=== PATIENT | female | born 1935 | race Caucasian/White ===

== ENCOUNTER → 2016-08-14 16:01 | Outpatient (CLI) | payer MEDICARE ==
[2015-10-25 13:37] VITALS: BMI 25.3
[~2016-08-14 16:01] MED LIST: ACETAMINOPHEN500 M1; FISH OIL 1,0001 CA1 PO; FOLATE0.4 MG; HYDROCODONE-APA1 TAB PO; MOBIC7.5 MG; MULTI-DAY VITAM1 TAB PO; NORCO 10/325 TA1 TA1 PO; NORCO 7.5/325 T1 TA1 PO; NORVASC5 MG PO; PACERONE100 MG PO; PRAVACHOL80 MG PO; PRINIVIL20 MG PO; ROBAXIN-750750 MG PO; VITAMIN D31000 UNIT PO; [UNRECOGNIZED DRUG - OTHER]
== END | disposition home or self-care (01) ==
LOC: D.MRI 08-13 16:00
DX: R27.0 Ataxia, unspecified (principal)

== ENCOUNTER 2017-12-13 09:56 | Outpatient (CLI) | payer MEDICARE ==
[~2017-12-13] VITALS: Ht 149.9 cm; Wt 49.1 kg
--- NOTE | ~2017-12-13 | HEMODYNAMI ---
PATIENT:NOE ESPINOSA MEDICAL RECORD: [id number] : 31 LOCATION:D.CAT ADMISSION DATE: 12/13/17 Generatedon:12/13/201712:50 Patient name: NOE ESPINOSA Patient #: [id number] SSN : : 1935 Date of study: 12/13/2017 Page: Of Hemodynamic Procedure Report Patient Data Patient Demographics Procedure consent was obtained First Name: NOE Gender: Female Last Name: JESÚS : 1935 Middle Initial: M Age: 82 year(s) Patient #: [id number] Race: Unknown Additional ID: [id number] Contact details [address]: [address] [place] [address] State: [place] City: [place] Zip code: [address] Past Medical History Allergies Allergen Reaction Date Comments Reported Other 10/25/2015 niacin,aspirin,gabapentin allergy Admission Admission Data Admission Date: 12/13/2017 Admission Time: 9:56 Procedure Procedure Types Cath Procedure Diagnostic Procedure Cardioversion External Procedure Description Procedure Date Procedure Date: 12/13/2017 Procedure Start Time: 12:28 Procedure End Time: 12:41 Procedure Staff Name Function Darius Wisdom RT Monitor Dylan Roca RN Nurse Nabila Rogers RN Nurse Alyssa Bill CRNA Additional personnel Linwood Chapa MD Performing Physician Lizbeth Burnette RT Monitor Kendra Roth RT Scrub Procedure Data Cath Procedure Estimated blood loss: 10 ml Procedure Complications No complications Procedure Medications Medication Administration Route Dosage Oxygen etCO2 Nasal cannula 2 l/min Refer to Anesthesia Notes for Sedation Medications Hemodynamics Rest Heart Rate: 76 (bpm) Snapshots Pre Cath Intra NCS Post Cath Vital Signs Time Heart Resp SPO2 etCO2 NIBP (mmHg) Rhythm Pain Sedation Rate (ipm) (%) (mmHg) Status Level (bpm) 12:18:13 81 20 97 28 138/91(118) NSR 0 (11) 10(A) , No pain 12:22:16 73 18 100 27 139/88(123) NSR 0 (11) 6(A) , No pain 12:26:22 73 23 100 27.7 147/82(120) NSR 0 (11) 6(A) , No pain 12:30:42 53 23 96 22 108/50(88) NSR 0 (11) 6(A) , No pain 12:34:46 57 19 100 22 106/55(82) NSR 0 (11) 10(A) , No pain 12:38:48 56 21 98 23 107/59(75) NSR 0 (11) 10(A) , No pain Medications Time Medication Route Dose Verified Delivered Reason Notes Effective ness by by 12:17:12 Oxygen etCO2 2 Linwood Richardson used for Nasal l/min Eduard Roca contract administrative assistant cannula 12:17:17 Refer to Linwood Richardson Anesthesia Eduard Roca RN Notes for Sedation Medications Procedure Log Time Note 12:02:01 Darius Wisdom RT(R) sent for patient. Start room use. 12:02:02 Time tracking: Regular hours (M-F 7:00 - 5:00) 12:02:07 Plan of Care:Hemodynamics will remain stable., Cardiac rhythm will remain stable., Comfort level will be maintained., Respiratory function will remain adequate., Patient/ family verbilizes understanding of procedure., Procedure tolerated without complication., Recovers from procedure without complications.. 12:11:22 Patient received from Pre/Post Procedure Room to CCL 2 Alert and oriented. Tansferred to table in Supine position. 12:11:23 Correct patient and procedure confirmed by team. 12:11:23 Warm blankets applied, and arlet hugger turned on for patient comfort. 12:11:25 Signed procedure consent form obtained from patient. 12:11:26 ECG and BP/O2 sat monitors applied to patient. 12:15:59 Vital chart was started 12:16:03 Baseline sample Acquired. 12:16:13 Rhythm: atrial fibrillation 12:16:14 Full Disclosure recording started 12:16:18 H&P Date Dictated: 12/13/2017 Within 30 days and on chart., H&P Addendum completed by physician on day of procedure. (MUST COMPLETE FOR ALL OUTPATIENTS). 12:16:19 Pre-procedure instructions explained to patient. 12:16:20 Pre-op teaching completed and patient verbalized understanding. 12:16:21 Family in waiting room. 12:16:23 Patient NPO since Midnight. 12:16:24 Is the patient allergic to Iodine/contrast media? No. 12:16:25 Was the patient premedicated? No 12:16:27 Is patient on blood thinner?Yes 12:16:32 ACC The patient was administered the following blood thiners within the last 24 hours: Coumadin 12:16:36 Patient diabetic? No. 12:16:38 Previous problem with sedation/anesthesia? No ? 12:16:40 Snore? No 12:16:41 Sleep apnea? No 12:16:42 Opens mouth fully? Yes 12:16:42 Deviated septum? No 12:16:43 Sticks out tongue? Yes 12:16:45 Airway obstruction? No ? 12:16:53 Dentures? Yes in tight 12:16:58 Patient pain scale 0/10 ?. 12:17:12 Oxygen 2 l/min etCO2 Nasal cannula was administered by Dylan Roca RN; used for procedure; 12:17:15 IV patent on arrival in left forearm with 0.9% NaCl at [facility]. 12:17:17 Refer to Anesthesia Notes for Sedation Medications was administered by Dylan Roca RN; ; 12:17:18 Lab results completed and on chart. 12:17:30 Alarms reviewed by RAmanda N. 12:17:31 Sharps counted by scrub and verified by R.N. 12:17:37 Quick combo pads placed on patients chest and back. 12:18:21 Alyssa Bill CRNA present and monitoring patient for TIVA. 12:19:24 --------ALL STOP TIME OUT------ 12:19:24 Physician arrived 12:19:25 Final Timeout: patient, procedure, and site verified with staff and physician. All members of the team are in agreement. 12:19:30 Physical assessment completed. ASA score P 2 - A patient with mild systemic disease as per Linwood Chapa MD. 12:19:34 Sedation plan: TIVA Medication:Propofol 12:28:26 Procedure started. 12:28:52 Defibrillator synced and charged to 200 Joules. 12:29:01 Shock delivered. 12:29:52 Patient cardioverted to sinus rhythm . 12:30:31 Procedure ended.(Physican Out) 12:30:59 Post-procedure physical assessment completed. ASA score P 2 - A patient with mild systemic disease as per Linwood Chapa MD. 12:31:12 Post procedure rhythm: sinus rhythm 12::15 Estimated blood loss: 10 ml 12:31:19 Post procedure instruction explained to patient.Patient verbalizes understanding. 12:31:52 Quick Combo opened to sterile field. 12:32:01 Procedure and supply charges have been captured, reviewed, submitted and are correct. 12:40:56 Procedure Complication : No complications 12:40:59 Vital chart was stopped 12:41:00 See physician's report for complete and final results. 12:41:02 Report given to Pre/Post Procedure Room. 12:41:05 Patient transfered to Pre/Post Procedure Room with Stretcher. 12:41:09 Full Disclosure recording stopped 12:41:09 Procedure ended. 12:41:15 End room use (Document Last) Device Usage Item Manufacture Quantity Catalog Hospital Part Current Minimal Lot# / Name Number Charge Number [facility] Code [employer] 1 [id number] Combo Signature Audit Cordova Stage Time Signature Unsigned Intra-Procedure 12/13/2017 Kendra Roth 12:50:41 PM RT(R) Signatures Monitor : Darius Wisdom RT Signature : Date : Time : Monitor : Lizbeth Burnette Signature : RT Date : Time : [place] [id number] [place]Z [place], [place] [address]
--- NOTE | ~2017-12-13 | OP ---
PATIENT NAME: NOE ESPINOSA MEDICAL RECORD: [id number] :31 LOCATION:D.CAT ADMISSION DATE: SURGEON: ETHEL OLSEN MD DATE OF OPERATION: 12/13/2017 PROCEDURE: DC cardioversion. INDICATION: Atrial fibrillation. PROCEDURE IN DETAIL: IV conscious sedation was per anesthesia. Continuous heart rate, O2 saturation, blood pressure monitoring all undertaken, all of which remains stable. She received 1 shock at 200 joules restoring sinus rhythm. OVERALL IMPRESSION: Successful DC cardioversion from atrial fibrillation to sinus rhythm. TRANSINT:[id number] Voice Confirmation ID: [id number] DOCUMENT ID: [id number] ETHEL OLSEN MD at 0924 CC: [id number] DICTATION DATE: 12/13/17 1230 ANCHOR TACK PULLER: 12/13/17 1237 DEP CLI 12/13/17 [address] [id number] [place] [address]
[2017-12-13] MEDS ORDERED: CALAN SR180 MG PO (10:18)
[2017-12-13] MEDS ORDERED: COUMADIN5 MG PO (10:19)
[2017-12-13 10:26] VITALS: BP 157/79; Ht 149.9 cm; Wt 49.1 kg
[2017-12-13 10:44] LABS: BASOPHILS 0.2 % (0-2); EOSINOPHILS 1.1 % (0-7); HEMATOCRIT 34.9 % (36.0-48.0); HEMOGLOBIN 11.1 g/dL (12-16); LYMPHOCYTES 21.2 % (15-50); MCH 28.3 pg (26.0-34.0); MCHC 31.8 g/dL (31.0-37.0); MEAN PLATELET VOLUME 11.3 fL (7.4-10.4); MONOCYTES 8.4 % (2-11); NEUTROPHILS 69.1 % (40-80); RBC 3.92 10x6/uL (4.00-5.40); RDW 18.7 % (11.5-14.5); WBC 4.5 10x3/uL (4.8-10.8)
[2017-12-13 10:48] LABS: PLATELET COUNT 310 10x3/uL (130-400)
[2017-12-13 11:02] LABS: INR 2.46 (0.85-1.17)
[2017-12-13 12:13] LABS: CALC OSMOLALITY 287 mosm/kg (275-300); CALCIUM 8.1 mg/dL (8.5-10.1); CHLORIDE - SERUM 110 mmol/L (98-107); CREATININE - SERUM 0.7 mg/dL (0.6-1.3); GLUCOSE 81 mg/dL (74-106); POTASSIUM - SERUM 3.5 mmol/L (3.5-5.1); SODIUM 145 mmol/L (136-145); UREA NITROGEN 12 mg/dL (7-18); eGFR NON AFRICAN AMERICAN 84 mL/min (90-120)
== END 2017-12-13 14:10 | disposition home or self-care (01) ==
LOC: D.CATH 09:56
PROVIDERS: Internal Medicine Interventional Cardiology
DX: I48.91 Unspecified atrial fibrillation (principal); Z01.812 Encounter for preprocedural laboratory examination

== ENCOUNTER → 2018-02-15 08:35 | Outpatient (CLI) | payer MEDICARE ==
[~2018-02-15] VITALS: Ht 149.9 cm; Wt 46.4 kg
[~2018-02-15 08:35] MED LIST changes: +CALAN SR180 MG PO; +COUMADIN5 MG PO
[2018-02-15 13:04] VITALS: BP 143/72; Ht 149.9 cm; Wt 46.4 kg
== END | disposition home or self-care (01) ==
LOC: D.OPS 08:00
DX: D64.9 Anemia, unspecified (principal); Z01.812 Encounter for preprocedural laboratory examination

== ENCOUNTER 2019-03-16 10:37 | Inpatient (IN) | payer MEDICARE ==
[~2019-03-16] VITALS: Ht 149.9 cm; Wt 50.0 kg
--- NOTE | ~2019-03-16 | OP ---
PATIENT NAME: NOE LEONE MEDICAL RECORD: [id number] :31 LOCATION:D.MS [id number] ADMISSION DATE:03/16/19 SURGEON: JESSE THURSTON DO DATE OF OPERATION: 03/17/2019 PROCEDURE PERFORMED: Right reverse total shoulder arthroplasty. PREOPERATIVE DIAGNOSIS: Severely comminuted displaced right proximal humerus fracture. POSTOPERATIVE DIAGNOSIS: Severely comminuted displaced right proximal humerus fracture. INDICATIONS: Ms. Leone is an 84-year-old female who fell taking a trash can yesterday onto her right side and sustained a severely comminuted right proximal humerus fracture. She was seen in the ER and complained of pain. 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 It has almost worn completely to the base or past the base of the coracoid and artifact. I talked to her about the risks of the surgery included damage to nerves including the axillary nerve, musculocutaneous nerve, and continue with other fractures, continued pain, loss of the use of the arm, bleeding. She was on Coumadin. Her INR was 1.65, gave her vitamin K and today it was 1.67, gave her some FFP and she wanted to undergo the surgery today. She did not want to wait and she wanted me to do it. I explained to her that she would be at risk for more blood loss and complications. She is okay with that, so was her and they wanted to proceed. She is also aware effects of blood clots, even , damage to other vessels in the area and signed the consent. SURGEON: Jesse Thurston DO DESCRIPTION OF PROCEDURE: The patient was taken to the operative suite, laid in supine position, sedated and intubated. She was given 1 gram Ancef preoperatively. She was then sat in a beach chair position. The right upper extremity was then prepped and draped in sterile fashion. Timeout was done, everyone was in agreement as to the correct side, site, patient and procedure. I then marked out the incision over the deltopectoral interval. Careful dissection was made down to the deltopectoral interval. A proximal centimeter of the pec was then taken down and the deltoid was severely adhesed to the proximal humerus. This was loosened up with a Woods and a Brown retractor was placed in it. I then dissected out the long head of the biceps tendon and tenodesed to the pectoral tendon and cut it and then opened up the joint after freeing up several adhesions the conjoined tendon also came off the coracoid due to being a very thin piece of bone. I then exposed the glenosphere. The labrum was removed. She had no less than 15 mm of bone left in the ____ and I reamed and put the baseplate in and then put 3 peripheral screws and has a central screw did not go due to no bone in the area. I fixed it solidly and impacted the glenosphere on and exposed the humerus. The proximal humerus had been resected due to the severe comminution and poor bone quality. I then broached and decided to cement 10 and then mixed the cement, put in the humerus and set the rotation at 30 degrees of retroversion and had the head height at 5.56 cm from the pec insertion to the top of the head what would have been for the tray. We then trialed the standard fit very well and put in a standard with every retention poly in and reduced it. It fit very well and good motion, good range OPERATIVE REPORT [id number] NOE LEONE of motion and there was adequate tension on the deltoid. I did not tension on the conjoined tendon due to the fact that had been removed, likely during the fracture when she fell. We then irrigated out and put Froy Ankush stitch put the conjoined tendon back with a small piece of bone that came off from it on the coracoid and sutured it down. This did cause some tension on the conjoined tendon, but was not taut for by any means. I then irrigated the wound out with povidone iodine solution 10% with 500 mL normal saline and then washed that out, placed Ralph, vancomycin, and tobramycin powder in the wound, closed the wound with 2-0 Vicryl interrupted fashion, 4-0 Monocryl in the skin and put Prineo glue on it. She is dressed with Telfa and Tegaderm. She was awakened and taken to recovery in stable condition. Blood loss approximately 600 mL. COMPLICATIONS: None. TRANSINT:[id number] Voice Confirmation ID: [id number] DOCUMENT ID: [id number] JESSE THURSTON DO CC: [id number] DICTATION DATE: 03/17/19 1256 MEND WORKER: 03/17/19 1852 ADM IN [facility] [address] [id number]
[2019-03-16] MEDS ORDERED: ULTRAM50 MG PO (10:42)
[2019-03-16] MEDS ORDERED: PROPAFENONE HC150 MG PO (10:42)
[2019-03-16 11:06] LABS: ANION GAP 12.6 mmol/L (8-16); CALCIUM 9.1 mg/dL (8.5-10.1); CARBON DIOXIDE 28.4 mmol/L (21.0-32.0); CREATININE - SERUM 0.9 mg/dL (0.6-1.3)
[2019-03-16 11:12] LABS: BILIRUBIN - TOTAL 0.73 mg/dL (0.2-1.3); PROTEIN - SERUM 7.1 g/dL (6.4-8.2)
[2019-03-16 11:14] LABS: APTT 31.7 SECONDS (22.8-39.4); INR 1.65 (0.85-1.17); PROTIME 19.3 SECONDS (11.6-15.0)
[2019-03-16 11:29] LABS: BASOPHILS 0.2 % (0-2); HEMATOCRIT 40.5 % (36.0-48.0); HEMOGLOBIN 13.2 g/dL (12-16); IMMATURE GRANULOCYTES 0.2 % (0-5); LYMPHOCYTES 17.4 % (15-50); MCHC 32.6 g/dL (31.0-37.0); MCV 98.3 fL (80.0-100.0); MEAN PLATELET VOLUME 9.3 fL (7.4-10.4); MONOCYTES 7.1 % (2-11); NEUTROPHILS 74.1 % (40-80); PLATELET COUNT 228 10x3/uL (130-400); RBC 4.12 10x6/uL (4.00-5.40); RDW 12.3 % (11.5-14.5); WBC 5.2 10x3/uL (4.8-10.8)
[2019-03-16 16:19] VITALS: BP 179/99; BMI 22.2
[2019-03-16 17:36] VITALS: BP 147/87
[2019-03-16 18:04] VITALS: Ht 149.9 cm; Wt 50.0 kg
[2019-03-16 21:14] VITALS: BP 180/120
[2019-03-17 00:30] VITALS: BP 179/92
[2019-03-17 05:30] VITALS: BP 163/96
[2019-03-17 06:25] LABS: BASOPHILS 0.2 % (0-2); EOSINOPHILS 0.5 % (0-7); HEMATOCRIT 39.8 % (36.0-48.0); IMMATURE GRANULOCYTES 0.2 % (0-5); LYMPHOCYTES 13.6 % (15-50); MCH 31.9 pg (26.0-34.0); MCHC 32.7 g/dL (31.0-37.0); MCV 97.8 fL (80.0-100.0); MEAN PLATELET VOLUME 9.6 fL (7.4-10.4); MONOCYTES 10.3 % (2-11); NEUTROPHILS 75.2 % (40-80); PLATELET COUNT 196 10x3/uL (130-400); RBC 4.07 10x6/uL (4.00-5.40); RDW 12.4 % (11.5-14.5); WBC 6.2 10x3/uL (4.8-10.8)
[2019-03-17 06:52] LABS: ANION GAP 13.6 mmol/L (8-16); CALCIUM 8.7 mg/dL (8.5-10.1); CREATININE - SERUM 0.8 mg/dL (0.6-1.3); MAGNESIUM - SERUM 2.2 mg/dL (1.8-2.4); PHOSPHOROUS 3.7 mg/dL (2.5-4.9); POTASSIUM - SERUM 3.6 mmol/L (3.5-5.1)
[2019-03-17 06:55] LABS: INR 1.67 (0.85-1.17); PROTIME 19.5 SECONDS (11.6-15.0)
--- NOTE | 2019-03-17 08:50 | NUR ---
FFP STARTED ORDERED.
--- NOTE | 2019-03-17 09:10 | NUR ---
PATIENT TO OR. RECIEVED HEART MEDS, BP MEDS, AND PREOPS.
[2019-03-17 09:24] VITALS: BP 160/103
--- NOTE | 2019-03-17 11:42 | NUR ---
PLASMA BLADE 6/8 GROUNDING PAD LOT [id number] EXP. 04/15/2020 RIGHT THIGH
--- NOTE | 2019-03-17 11:44 | NUR ---
FROM NECK TO FINGERTIPS CLENSED WITH HIBACLENS AND ALCOHOL FIRST THEN CHLORAPREP WHILE STERILE GOWNED AND GLOVED WOUND PACKED WITH TOBRA AND VANC, BETADINE IRRIGATION ON FIELD THROUGH TRAFFIC KEPT TO MINIMUM
[2019-03-17] MEDS ORDERED: HYDROCODON-ACE1 EAC7 PO (12:49)
[2019-03-17] MEDS ORDERED: HYDROCODON-ACE1 EA10 PO (12:52)
[2019-03-17 13:59] LABS: HEMATOCRIT 35.2 % (36.0-48.0); HEMOGLOBIN 11.4 g/dL (12-16)
--- NOTE | 2019-03-17 14:00 | NUR ---
PATIENT IN BED CONFUSED WITH IV INTACT. REPOSITONED. PURE WICK REPLACED. BA ON. REFUSING POST OP VS. VS ARE NORMAL AT THIS TIME. FAMILY AT BEDSIDE. CALL LIGHT WITHIN REACH.
[2019-03-17 14:42] VITALS: BP 110/65
[2019-03-17 17:16] VITALS: BP 157/66
--- NOTE | 2019-03-17 18:00 | NUR ---
PATIENT IN BED WITH EYES CLOSED VS STABLE. HAS NOT ATE OR DRANK. STILL SLEEPY FROM OR. REFUSES SCDS AND VS. IV INTACT. FAMILY AT BEDSIDE. CALL LIGHT WITHIN REACH.
--- NOTE | 2019-03-17 19:00 | NUR ---
BEDSIDE REPORT RECEIVED AND CARE OF PT ASSUMED. PT LYING IN SUPINE POSITION VISITING WITH SPOUSE. PUREWICK EXTERNAL CATHETER IN PLACE. IV TO LEFT AC PATENT WITH 1/2 NS INFUSING AT 50 ML/HR. BED ALARM IN USE FOR SAFETY. SLING IN PLACE ON RIGHT ARM.
[2019-03-17 20:00] VITALS: BP 114/86
--- NOTE | 2019-03-17 20:50 | NUR ---
HS MEDICATIONS GIVEN TO INCLUDE XANAX PER REQUEST FOR SLEEP / ANXIETY.
--- NOTE | 2019-03-17 21:36 | NUR ---
PT PULLED OUT IV TO LEFT AC. CATHETER TIP INTACT. RE-SITED BACK TO LEFT AC USING 20 GUAGE CATHETER IN ONE STICK. WRAPPED ARM IN KERLEX TO TRY TO KEEP PT FROM PULLING OUT AGAIN.
--- NOTE | 2019-03-17 22:20 | NUR ---
PT RESTLESS AND MOANING IN PAIN. GAVE MORPHINE 4 MG IVP PER PRN ORDER. WILL CONTINUE TO MONITOR FOR NEEDS.
--- NOTE | 2019-03-17 23:47 | NUR ---
PT YELLING OUT IN PAIN. DISCUSSED OPTIONS WITH AND GAVE DILAUDID 0.5 MG IVP PER PRN ORDER FOR PAIN.
[2019-03-18] VITALS: BP 150/74
[2019-03-18 04:00] VITALS: BP 90/68
--- NOTE | 2019-03-18 04:30 | NUR ---
ONLY 400 ML OUT IN PUREWICK TONIGHT. BLADDER SCAN REVEALED >600 ML IN BLADDER. IN AND OUT CATH PERFORMED AND YEILDED 750 ML YELLOW URINE OUT.
--- NOTE | 2019-03-18 05:15 | NUR ---
PT BATHED AND ALL LINEN AND GOWN CHANGED.
[2019-03-18 07:41] LABS: BASOPHILS 0.1 % (0-2); EOSINOPHILS 0 % (0-7); IMMATURE GRANULOCYTES 0.3 % (0-5); LYMPHOCYTES 7.7 % (15-50); MCHC 32.9 g/dL (31.0-37.0); MCV 97.2 fL (80.0-100.0); MEAN PLATELET VOLUME 9.4 fL (7.4-10.4); MONOCYTES 14.5 % (2-11); NEUTROPHILS 77.4 % (40-80); PLATELET COUNT 162 10x3/uL (130-400); RDW 12.7 % (11.5-14.5)
[2019-03-18 07:56] LABS: ANION GAP 13.6 mmol/L (8-16); CALCIUM 7.6 mg/dL (8.5-10.1); CREATININE - SERUM 0.9 mg/dL (0.6-1.3); HEMATOCRIT 24.3 % (36.0-48.0); POTASSIUM - SERUM 3.6 mmol/L (3.5-5.1); WBC 9.4 10x3/uL (4.8-10.8)
[2019-03-18 09:13] VITALS: BP 105/56
[2019-03-18 11:00] LABS: APTT 33.3 SECONDS (22.8-39.4)
[2019-03-18 11:01] LABS: INR 1.29 (0.85-1.17)
--- NOTE | 2019-03-18 11:27 | NUR ---
RESTING IN BED, NO DISTRESS NOTED, SLING TO RIGHT ARM, FAMILY IN ROOM, IV INFUSNG, CONT TO MONITOR PAIN
[2019-03-18 13:38] VITALS: BP 137/65
[2019-03-18 17:12] VITALS: BP 156/64
--- NOTE | 2019-03-18 19:00 | NUR ---
BEDSIDE REPORT RECEIVED AND CARE OF PT ASSUMED. PT LYING IN SUPINE POSITION WITH EYES CLOSED. IV TO LEFT WRIST PATENT WITH 1/2 NS INFUSING AT 50 ML/HR. RIGHT ARM IN SLING, DRESSING CLEAN AND DRY. RIGHT ARM REMAINS EXTREMELY BRUISED. TELEMETRY IN PLACE AND READING 74 CONTROLLED A-FIB. PT NOT CONFUSED SHE WAS LAST EVENING. WILL MONITOR FOR NEEDS. IS AT BEDSIDE.
--- NOTE | 2019-03-18 19:41 | NUR ---
1840 UNIT OF BLOOD COMPLETED, IN ROOM, VITALS WNL, CONT TO MONITOR
[2019-03-18 20:00] VITALS: BP 130/44
--- NOTE | 2019-03-18 21:35 | NUR ---
HS MEDICATIONS GIVEN TO INCLUDE NORCO PO FOR PAIN, PER PRN ORDER. WILL MONITOR FOR EFFECTIVENESS.
--- NOTE | 2019-03-18 22:58 | NUR ---
PT RESTING QUIETLY IN SUPINE POSITION WITH EASY RESPIRATIONS. SPOUSE IS AT BEDSIDE.
[2019-03-19] VITALS: BP 130/54
--- NOTE | 2019-03-19 01:47 | NUR ---
CHANGED BEDPADS AND GOWN DUE TO INCONTINENCE OF URINE. REPLACED PUREWICK EXTERNAL CATHETER. POSITIONED PT ONTO LEFT SIDE WITH PILLOWS. WILL CONTINUE TO MONITOR FOR NEEDS.
--- NOTE | 2019-03-19 03:11 | NUR ---
PT YELLING OUT AND FACIAL GRIMACING IN PAIN. GAVE NORCO 10 PO PER PRN ORDER. WILL MONITOR FOR EFFECTIVENESS. BED ALARM AND X3 SIDE RAILS UP FOR SAFETY.
[2019-03-19 04:00] VITALS: BP 135/63
--- NOTE | 2019-03-19 05:18 | NUR ---
PT BATHED AND ALL LINEN AND GOWN CHANGED. POSITIONED FOR COMFORT.
[2019-03-19 06:13] LABS: BASOPHILS 0 % (0-2); EOSINOPHILS 0.1 % (0-7); HEMATOCRIT 27.3 % (36.0-48.0); HEMOGLOBIN 8.9 g/dL (12-16); IMMATURE GRANULOCYTES 0.1 % (0-5); MCHC 32.6 g/dL (31.0-37.0); MEAN PLATELET VOLUME 9.8 fL (7.4-10.4); MONOCYTES 11.8 % (2-11); PLATELET COUNT 156 10x3/uL (130-400); RBC 2.87 10x6/uL (4.00-5.40); RDW 14.5 % (11.5-14.5); WBC 8.4 10x3/uL (4.8-10.8)
[2019-03-19 06:29] LABS: MCV 95.1 fL (80.0-100.0)
[2019-03-19 06:37] LABS: INR 1.09 (0.85-1.17); PROTIME 14.1 SECONDS (11.6-15.0)
[2019-03-19 06:39] LABS: APTT 50.3 SECONDS (22.8-39.4)
[2019-03-19 06:42] LABS: ANION GAP 12.9 mmol/L (8-16); CALCIUM 8.2 mg/dL (8.5-10.1); CARBON DIOXIDE 23.5 mmol/L (21.0-32.0); CREATININE - SERUM 0.8 mg/dL (0.6-1.3); POTASSIUM - SERUM 3.4 mmol/L (3.5-5.1)
--- NOTE | 2019-03-19 09:24 | NUR ---
RESTING IN BED, EATING BREAKFAST, IV INFUSING, NO DISTRESS NOTED, SLING TO R ARM, BRUISING NOTED TO LEFT SHOULDER, MEDICATED FOR PAIN
[2019-03-19 10:00] VITALS: BP 132/78
[2019-03-19 13:17] VITALS: BP 108/56
[2019-03-19 16:27] VITALS: BP 140/59
--- NOTE | 2019-03-19 19:00 | NUR ---
BEDSIDE REPORT RECEIVED AND CARE OF PT ASSUMED. PT LYING IN SUPINE POSITION WITH EYES CLOSED. IV TO LEFT WRIST PATENT WITH 1/2 NS INFUSING AT 50 ML/HR. TELEMETRY IN PLACE PER ORDER AND READING 73 CONTROLLED A-FIB. WILL MONITOR FOR NEEDS.
--- NOTE | 2019-03-19 19:38 | NUR ---
1800 CONFUSED THIS PM, ASKING ABOUT HER , UNAWARE OF WHERE SHE IS AT OR WHY, CAUGHT PT X2 CRAWLING OUT OF BED, DEEPALI IN PLACE
[2019-03-19 20:00] VITALS: BP 116/53
--- NOTE | 2019-03-19 20:10 | NUR ---
HS MEDICATIONS GIVEN TO INCLUDE NORCO PO FOR C/O PAIN. WILL CONTINUE TO MONITOR FOR NEEDS.
[2019-03-20] VITALS: BP 144/59
--- NOTE | 2019-03-20 01:00 | NUR ---
PT BATHED AND ALL LINEN AND GOWN CHANGED. POSITIONED FOR COMFORT.
--- NOTE | 2019-03-20 01:22 | NUR ---
PT SCREAMING AND STRIPPING HER CLOTHES OFF....VERY CONFUSED AND DISORIENTED. POSITIONED IN BED FOR COMFORT, PLACED HER GOWN BACK ON AND COVERED HER UP.
--- NOTE | 2019-03-20 02:50 | NUR ---
PT SCREAMING AND CLIMBING OUT OF BED....SCREAMS LOUDER WHEN TOUCHED. GAVE NORCO AND XANAX PER PRN ORDERS TO TRY TO CALM PT DOWN AND RELIEVE PAIN.
--- NOTE | 2019-03-20 03:00 | NUR ---
CHANGED BEDPADS AND GOWN X3 IN 15 MINUTES...PT URINATING SOON NEW PADS PLACED UNDER HER. POSITIONED FOR COMFORT. BED ALARM IN USE FOR SAFETY. OUT OF YELLOW GOWNS AT THIS TIME.
[2019-03-20 04:00] VITALS: BP 154/70
--- NOTE | 2019-03-20 05:00 | NUR ---
PT CONTINUES YELLING AND CLIMBING OVER BED RAILS DESPITE PRN MEDICATIONS. THIS NURSE AND SEVERAL OTHERS HAVE BEEN IN HER ROOM NUMEROUS TIMES TO KEEP HER IN THE BED AND TRY TO QUIET HER SCREAMS. VERY CONFUSED AND DISORIENTED. BED ALARM IN USE.
--- NOTE | 2019-03-20 05:30 | NUR ---
PT BATHED AND ALL LINEND AND GOWN CHANGED DUE TO INCONTINENCE OF URINE.
--- NOTE | 2019-03-20 07:28 | NUR ---
PT LYING IN BED NO NEEDS VOICED, PT MIDLINE INCISION, RANI ON LEFT SIDE OF ABDOMEN AND WHITNEY SITES ARE ALL CDI, NO NEEDS VOICED FROM PT AT THIS TIME, NO S/SX OF DISTRESS, CL IN REACH, CONTINUE WITH PLAN OF CARE
--- NOTE | 2019-03-20 07:32 | NUR ---
PT LYING IN BED EVEN RISE AND FALL OF CHEST, PER PM NURSE PT HAS BEEN UP ALL NIGHT YELLING, PT NO SLEEPING, NO S/SX OF DISTRESS, CL IN REACH BED IN LOWEST POSITION, ASSIME PT CARE
[2019-03-20 08:37] LABS: HEMATOCRIT 30.7 % (36.0-48.0); HEMOGLOBIN 9.9 g/dL (12-16); MCH 30.7 pg (26.0-34.0); MCHC 32.2 g/dL (31.0-37.0); MCV 95.3 fL (80.0-100.0); MEAN PLATELET VOLUME 9.4 fL (7.4-10.4); RBC 3.22 10x6/uL (4.00-5.40); RDW 13.4 % (11.5-14.5); WBC 7.6 10x3/uL (4.8-10.8)
[2019-03-20 08:55] LABS: INR 0.98 (0.85-1.17)
[2019-03-20 08:56] VITALS: BP 174/75
[2019-03-20 08:56] LABS: APTT 34.8 SECONDS (22.8-39.4)
--- NOTE | 2019-03-20 10:12 | MORECARE ---
CASE MANAGEMENT DISCHARGE SUMMARY PATIENT: NOE LEONE UNIT: [id number] ADM DATE: 03/16/19 AGE: 84 : 33 SEX: F [facility] AUTHOR: TRESA SHRESTHA PHYSICIAN: REFERRING PHYSICIAN: GABBIE WATERS MD DATE OF SERVICE: 03/20/19 Discharge Plan Patient Name: NOE LEONE [facility] [facility] 1935 [facility] Disposition[facility] Facility Anticipated Discharge Date: Discharge Date: Expected LOS: Initial Reviewer: [email or web address] Initial Review Date: 03/20/2019 Generated: 03/20/19 11:11 am DCPIA - Discharge Planning Initial Assessment Updated by [email or web address]: Kaylen Lechuga on 03/20/19 10:10 am * Is the patient Alert and Oriented? Yes * How many steps to enter\exit or inside your home? 2/ * PCP Tom * [facility] #1 * Preadmission Environment Home with Family * ADLs Partial Dependent * Partial ADLs (Assistance needed) Ambulation Bathing * Equipment Cane * List name and contact numbers for known caregivers / representatives who currently or will assist patient after discharge: Manoj Leone - [facility] - [phone] External [facility] Contact Date: Service Request Date: Service Type: Resolution: Reviewer: Comments: Patient Name: NOE LEONE Page [phone] at 1012 All edits/amendments must be made on the electronic document DICTATION DATE: 03/20/19 1011 DENTAL NURSE: DM 03/20/19 1011 RPT#: [id number] DC DATE: STATUS: ADM IN [facility] [address] [place] [address] END OF REPORT
--- NOTE | 2019-03-20 10:18 | MORECARE ---
CASE MANAGEMENT DISCHARGE SUMMARY PATIENT: NOE LEONE UNIT: [id number] ADM DATE: 03/16/19 AGE: 84 : 33 SEX: F ROOM/BED: D[facility] AUTHOR: FADY,DOC PHYSICIAN: REFERRING PHYSICIAN: GABBIE WATERS MD DATE OF SERVICE: 03/20/19 Discharge Plan Patient Name: NOE LEONE Facility: [facility]:[place] : 1935 Planned Disposition: [facility] Facility Anticipated Discharge Date: Discharge Date: Expected LOS: Initial Reviewer: [email or web address] Initial Review Date: 03/20/2019 Generated: 03/20/19 11:18 am Comments DCP- Discharge Planning Updated by [email or web address]: Kaylen Lechuga on 03/20/19 9:[address] Patient Name: NOE LEONE Admission Status: ER Accout number: [id number] Admission Date: 03-16-2019 : 1935 Admission Diagnosis: Attending: GABBIE WATERS Current LOS: 4 Anticipated DC Date: Planned Disposition: [facility] Facility Primary Insurance: [facility] [employer] [employer] Discharge Planning Comments: CM met with patient and her in the room to discuss discharge planning/needs. Patient is drowsy and gives permission to discuss needs with . She lives with her in [place]. Her states she walks with a hurricane cane and he assists her bathing, otherwise she is independent. I discussed the availability of rehab and additional DME needs and he would like a referral to [facility]. I called and spoke with Sylvia Singh at [facility] and clinical faxed. I will need to send the OT eval when completed. She will need insurance authorization prior to admission. CM will continue to follow and assist with discharge planning/needs. Fingerprint Classifier: Kaylen Lechuga DCPIA - Discharge Planning Initial Assessment Updated by [email or web address]: Kaylen Lechuga on 03/20/19 10:10 am * Is the patient Alert and Oriented? Yes * How many steps to enter\exit or inside your home? 2/ * PCP Tom * Pharmacy [facility] #1 * Preadmission Environment Home with Family * ADLs Partial Dependent * Partial ADLs (Assistance needed) Ambulation Bathing * Equipment Cane * List name and contact numbers for known caregivers / representatives who currently or will assist patient after discharge: Manoj Leone - spouse - [phone] Coverage Notice Reviewer: [email or web address] Rashida Lechuga Notice Issued Date-Time: 03/20/2019 10:13 Notice Type: Patient Choice Letter Notice Delivered To: Family Member Relationship to Patient: Spouse Team Guide Name: Manoj Leone Delivery Method: HAND - Hand Delivered Buffy Days: Prior Verbal Notification: Recipient Understood Notice: Yes Recipient Signature: Yes Med Rec Note Co-signed by Attending: Coverage Notice Comment: CRISTOFER for Jarod Clements Last DP export: 03/20/19 9:12 a Patient Name: NOE LEONE Page [phone] at 1018 All edits/amendments must be made on the electronic document DICTATION DATE: 03/20/19 1018 CRANKSHAFT GRINDER: ALFRED 03/20/19 1018 RPT#: [id number] DC DATE: STATUS: ADM IN [facility] [address] [place] [address] END OF REPORT
--- NOTE | 2019-03-20 15:50 | NUR ---
I have reviewed this patient and I concur with the Shift Assessment completed by the Licensed Practical Nurse today this shift.
--- NOTE | 2019-03-20 19:00 | NUR ---
BEDSIDE REPORT RECEIVED AND CARE OF PT ASSUMED. PT LYING IN SUPINE POSITION VISITING WITH SPOUSE. IV TO LEFT WRIST PATENT WITH 1/2 NS INFUSING AT 50 ML/HR. TELEMETRY IN PLACE AND READING CONTROLLED A-FIB AT THIS ASSESSMENT. RIGHT ARM IN SLING. WILL MONITOR FOR NEEDS. BED ALARM IN USE.
[2019-03-20 20:00] VITALS: BP 126/75
--- NOTE | 2019-03-20 21:28 | NUR ---
HS MEDICATIONS GIVEN TO INCLUDE NORCO FOR C/O SEVERE PAIN. WILL MONITOR FOR EFFECTIVENESS.
--- NOTE | 2019-03-20 22:30 | NUR ---
ASSISTED PT TO USE BEDPAN TO VOID.
[2019-03-21 00:17] VITALS: BP 139/74
[2019-03-21 04:15] VITALS: BP 148/81
--- NOTE | 2019-03-21 05:38 | NUR ---
PT BATHED AND HAIR WASHED. ALL LINENS AND GOWN CHANGED. NEW YELLOW GOWN AND GRIPPER SOCKS IN PLACE. BED ALARM IN USE. IS AT BEDSIDE.
[2019-03-21 06:04] LABS: BASOPHILS 0 % (0-2); EOSINOPHILS 2.7 % (0-7); HEMATOCRIT 26.7 % (36.0-48.0); HEMOGLOBIN 8.6 g/dL (12-16); IMMATURE GRANULOCYTES 0.2 % (0-5); LYMPHOCYTES 13.7 % (15-50); MCHC 32.2 g/dL (31.0-37.0); MCV 96.4 fL (80.0-100.0); NEUTROPHILS 72.4 % (40-80); PLATELET COUNT 198 10x3/uL (130-400); RBC 2.77 10x6/uL (4.00-5.40); RDW 13.5 % (11.5-14.5)
[2019-03-21 06:12] LABS: PROTIME 15.3 SECONDS (11.6-15.0)
[2019-03-21 07:23] LABS: INR 1.22 (0.85-1.17)
[2019-03-21 08:52] LABS: ALBUMIN 2.3 g/dL (3.4-5.0); ALKALINE PHOSPHATASE 90 U/L (46-116); ALT (SGPT) 108 U/L (10-68); CALC OSMOLALITY 279 mosm/kg (275-300); CALCIUM 7.7 mg/dL (8.5-10.1); CHLORIDE - SERUM 108 mmol/L (98-107); CREATININE - SERUM 0.7 mg/dL (0.6-1.3); POTASSIUM - SERUM 3.6 mmol/L (3.5-5.1); PROTEIN - SERUM 5.2 g/dL (6.4-8.2); SODIUM 141 mmol/L (136-145); UREA NITROGEN 14 mg/dL (7-18); eGFR NON AFRICAN AMERICAN 84 mL/min (90-120)
[2019-03-21 08:53] LABS: GLUCOSE 69 mg/dL (74-106)
--- NOTE | 2019-03-21 08:54 | NUR ---
PT ALERT X 4. BREATH SOUNDS CLEAR BILAT. TELEMETRY IN PLACE. BRUISING TO RIGHT SHOULDER AND RIGHT HIP. SLING TO RIGHT ARM. IV TO LEFT WRIST, PATENT, DRESSING CDI. LINENS CHANGED. PT REPORTING PAIN OF 6/10, WILL MONITOR. BED LOW, CALL LIGHT IN REACH. FAMILY AT BEDSIDE. NO OTHER NEEDS AT THIS TIME.
[2019-03-21 09:23] VITALS: BP 175/89
--- NOTE | 2019-03-21 10:25 | MORECARE ---
CASE MANAGEMENT DISCHARGE SUMMARY PATIENT: NOE LEONE UNIT: [id number] ADM DATE: 03/16/19 AGE: 84 : 33 SEX: F ROOM/BED: D.[facility] AUTHOR: TRESA SHRESTHA PHYSICIAN: REFERRING PHYSICIAN: GABBIE WATERS MD DATE OF SERVICE: 03/21/19 Discharge Plan Patient Name: NOE LEONE Facility: [facility]:[place] : 1935 Planned Disposition: Retirement Facility Anticipated Discharge Date: Discharge Date: Expected LOS: Initial Reviewer: [email or web address] Initial Review Date: 03/20/2019 Generated: 03/21/19 11:25 am Comments DCP- Discharge Planning Updated by [email or web address]: Kaylen Lechuga on 03/21/19 9:[address] Sylvia Singh called and states they have insurance auth and will fruit or nut picker patient at 12:30. She will be going to a skilled bed at [facility]. is in room and agrees with plan. DCP- Discharge Planning Updated by [email or web address]: Kaylen Lechuga on 03/20/19 9:[address] Patient Name: NOE LEONE Admission Status: ER Accout number: [id number] Admission Date: 03-16-2019 : 1935 Admission Diagnosis: Attending: GABBIE WATERS Current LOS: 4 Anticipated DC Date: Planned Disposition: Retirement Facility Primary Insurance: [facility] MEDICARE SOLUTIONS Discharge Planning Comments: CM met with patient and her in the room to discuss discharge planning/needs. Patient is drowsy and gives permission to discuss needs with . She lives with her in [facility]. Her states she walks with a hurricane cane and he assists her bathing, otherwise she is independent. I discussed the availability of rehab and additional DME needs and he would like a referral to [facility]. I called and spoke with Sylvia Singh at [facility] and clinical faxed. I will need to send the OT eval when completed. She will need insurance authorization prior to admission. CM will continue to follow and assist with discharge planning/needs. Spacer Type Bar And Segment: Kaylen Lechuga DCPIA - Discharge Planning Initial Assessment Updated by [email or web address]: Kaylen Lechuga on 03/20/19 10:10 am * Is the patient Alert and Oriented? Yes * How many steps to enter\exit or inside your home? 2/ * PCP Tom * Pharmacy [facility] * Preadmission Environment Home with Family * ADLs Partial Dependent * Partial ADLs (Assistance needed) Ambulation Bathing * Equipment Cane * List name and contact numbers for known caregivers / representatives who currently or will assist patient after discharge: Manoj Leone - spouse - [phone] Coverage Notice Reviewer: [id number] Lechuga Notice Issued Date-Time: 03/20/2019 10:13 Notice Type: Patient Choice Letter Notice Delivered To: Family Member Relationship to Patient: Spouse Clay Caster Name: Manoj Leone Delivery Method: HAND - Hand Delivered Buffy Days: Prior Verbal Notification: Recipient Understood Notice: Yes Recipient Signature: Yes Med Rec Note Co-signed by Attending: Coverage Notice Comment: CRISTOFER for Jarod Clements Reviewer: [email or web address] Rashida Lechuga Notice Issued Date-Time: 03/21/2019 10:20 Notice Type: IM Discharge Notice Notice Delivered To: Family Member Relationship to Patient: Spouse Clay Caster Name: Manoj Leone Delivery Method: HAND - Hand Delivered Buffy Days: Prior Verbal Notification: Recipient Understood Notice: Yes Recipient Signature: Yes Med Rec Note Co-signed by Attending: Coverage Notice Comment: IMM delivered, signed, given, copy placed in MR Last DP export: 03/20/19 9:18 a Patient Name: NOE LEONE Page [phone] at 1025 All edits/amendments must be made on the electronic document DICTATION DATE: 03/21/19 1025 MEAT CUTTING BLOCK REPAIRER: DM 03/21/19 1025 RPT#: [id number] DC DATE: STATUS: ADM IN [facility] [address] [place] [address] END OF REPORT
--- NOTE | 2019-03-21 12:26 | NUR ---
DISCHARGE PAPERWORK SIGNED BY , ALL QUESTIONS ANSWERED. IV TO LEFT WRIST DC'D TIP INTACT. ESCORTED OUT BY WHEELCHAIR BY [employer] EMPL[employer]EE.
--- NOTE | 2019-03-23 08:32 | MORECARE ---
CASE MANAGEMENT DISCHARGE SUMMARY PATIENT: NOE LEONE UNIT: [id number] ADM DATE: 03/16/19 AGE: 84 : 33 SEX: F ROOM/BED: D.[facility] AUTHOR: TRESA SHRESTHA PHYSICIAN: REFERRING PHYSICIAN: GABBIE WATERS MD DATE OF SERVICE: 03/23/19 Discharge Plan Patient Name: NOE LEONE Facility: [facility]:[place] : 1935 Planned Disposition: Jail Facility Anticipated Discharge Date: Discharge Date: 03/21/2019 Expected LOS: 0 Initial Reviewer: [email or web address] Initial Review Date: 03/20/2019 Generated: 03/23/19 9:32 am Comments DCP- Discharge Planning Updated by [email or web address]: Kaylen Lechuga on 03/21/19 9:[address] Sylvia Singh called and states they have insurance auth and will nut picker patient at 12:30. She will be going to a skilled bed at [facility]. is in room and agrees with plan. DCP- Discharge Planning Updated by [id number]: Kaylen Lechuga on 03/20/19 9:[address] Patient Name: NOE LEONE Admission Status: ER Accout number: [id number] Admission Date: 03-16-2019 : 1935 Admission Diagnosis: Attending: GABBIE WATERS Current LOS: 4 Anticipated DC Date: Planned Disposition: Jail Facility Primary Insurance: [facility] MEDICARE SOLUTIONS Discharge Planning Comments: CM met with patient and her in the room to discuss discharge planning/needs. Patient is drowsy and gives permission to discuss needs with . She lives with her in [facility]. Her states she walks with a hurricane cane and he assists her bathing, otherwise she is independent. I discussed the availability of rehab and additional DME needs and he would like a referral to [facility]. I called and spoke with Sylvia Singh at [facility] and clinical faxed. I will need to send the OT eval when completed. She will need insurance authorization prior to admission. CM will continue to follow and assist with discharge planning/needs. Streetcar Starter: Kaylen Lechuga DCPIA - Discharge Planning Initial Assessment Updated by CLAUDIA: Kaylen Lechuga on 03/20/19 10:10 am * Is the patient Alert and Oriented? Yes * How many steps to enter\exit or inside your home? 2/ * PCP Tom * Pharmacy [facility] #1 * Preadmission Environment Home with Family * ADLs Partial Dependent * Partial ADLs (Assistance needed) Ambulation Bathing * Equipment Cane * List name and contact numbers for known caregivers / representatives who currently or will assist patient after discharge: Manoj Leone - spouse - [phone] Coverage Notice Reviewer: CLAUDIA Lechuga Notice Issued Date-Time: 03/20/2019 10:13 Notice Type: Patient Choice Letter Notice Delivered To: Family Member Relationship to Patient: Spouse Trains Dispatcher Supervisor Name: Manoj Leone Delivery Method: HAND - Hand Delivered Buffy Days: Prior Verbal Notification: Recipient Understood Notice: Yes Recipient Signature: Yes Med Rec Note Co-signed by Attending: Coverage Notice Comment: CRISTOFER for Jarod Clements Reviewer: [id number] Lechuga Notice Issued Date-Time: 03/21/2019 10:20 Notice Type: IM Discharge Notice Notice Delivered To: Family Member Relationship to Patient: Spouse Trains Dispatcher Supervisor Name: Manoj Leone Delivery Method: HAND - Hand Delivered Buffy Days: Prior Verbal Notification: Recipient Understood Notice: Yes Recipient Signature: Yes Med Rec Note Co-signed by Attending: Coverage Notice Comment: IMM delivered, signed, given, copy placed in MR Last DP export: 03/21/19 9:25 a Patient Name: NOE LEONE Page [phone] at 0832 All edits/amendments must be made on the electronic document DICTATION DATE: 03/23/19 0832 THROUGH OPERATOR: ALFRED 03/23/19 0832 RPT#: [id number] DC DATE:03/21/19 STATUS: DIS IN [facility] [address] [place] [id number] END OF REPORT
== END 2019-03-21 12:27 | DRG 483 ==
LOC: D.ER 10:37 → D.MS 13:27
PROVIDERS: Anesthesiology; Family Medicine; Orthopaedic Surgery; ADMIT Family Medicine; ATTEND Family Medicine
PROC: 0RRJ00Z Replacement of Right Shoulder Joint with Reverse Ball and Socket Synthetic Substitute, Open Approach (ICD-10-PCS; principal; 2019-03-17 09:15)
DX: S42.201A Unspecified fracture of upper end of right humerus, initial encounter for closed fracture (principal); I48.20 Chronic atrial fibrillation, unspecified; D62 Acute posthemorrhagic anemia; W19.XXXA Unspecified fall, initial encounter; Y92.009 Unspecified place in unspecified non-institutional (private) residence as the place of occurrence of the external cause; I10 Essential (primary) hypertension; M54.9 Dorsalgia, unspecified; M81.0 Age-related osteoporosis without current pathological fracture; M41.9 Scoliosis, unspecified; M19.90 Unspecified osteoarthritis, unspecified site

== ENCOUNTER 2019-06-28 19:03 | Inpatient (IN) | payer MEDICARE ==
[~2019-06-28] VITALS: Ht 149.9 cm; Wt 49.9 kg
[~2019-06-28 19:03] MED LIST changes: +HYDROCODON-ACE1 EA10 PO; +HYDROCODON-ACE1 EAC7 PO; +PROPAFENONE HC150 MG PO; +ULTRAM50 MG PO
[2019-06-28] MEDS ORDERED: HYDROCODON-ACE1 EAC2 PO (19:22)
[2019-06-28 19:34] LABS: BASOPHILS 0.1 % (0-2); EOSINOPHILS 0.9 % (0-7); HEMATOCRIT 40.3 % (36.0-48.0); HEMOGLOBIN 12.8 g/dL (12-16); IMMATURE GRANULOCYTES 0.1 % (0-5); LYMPHOCYTES 18.1 % (15-50); MCH 30.7 pg (26.0-34.0); MCHC 31.8 g/dL (31.0-37.0); MCV 96.6 fL (80.0-100.0); MEAN PLATELET VOLUME 9.7 fL (7.4-10.4); MONOCYTES 8.2 % (2-11); NEUTROPHILS 72.6 % (40-80); PLATELET COUNT 211 10x3/uL (130-400); RBC 4.17 10x6/uL (4.00-5.40); RDW 13.7 % (11.5-14.5); WBC 6.7 10x3/uL (4.8-10.8)
[2019-06-28 20:00] LABS: APTT 34.3 SECONDS (22.8-39.4); INR 1.58 (0.85-1.17); PROTIME 18.7 SECONDS (11.6-15.0)
[2019-06-28 20:03] VITALS: BP 163/113
--- NOTE | 2019-06-28 20:03 | NUR ---
KNEE IMMOBILIZER PLACED BY EDP DURING SEDATION.
--- NOTE | 2019-06-28 20:03 | NUR ---
SEE MODERATE SEDATION PAPER WORK FOR VITALS Q 5 MINUTES
[2019-06-28 20:08] VITALS: BP 121/69
[2019-06-28 20:13] VITALS: BP 116/65
[2019-06-28 20:18] VITALS: BP 104/59
[2019-06-28 20:25] LABS: ANION GAP 12.2 mmol/L (8-16); CARBON DIOXIDE 27.9 mmol/L (21.0-32.0); POTASSIUM - SERUM 4.1 mmol/L (3.5-5.1)
[2019-06-28 20:31] LABS: ALBUMIN 3.9 g/dL (3.4-5.0); BILIRUBIN - TOTAL 0.41 mg/dL (0.2-1.3); PROTEIN - SERUM 6.8 g/dL (6.4-8.2)
[2019-06-28 21:00] VITALS: BP 126/83
[2019-06-28 21:23] LABS: BILIRUBIN NEGATIVE (NEGATIVE); GLUCOSE NEGATIVE (NEGATIVE); KETONE NEGATIVE (NEGATIVE); NITRITE NEGATIVE (NEGATIVE); UROBILINOGEN NORMAL (NORMAL)
[2019-06-28] MEDS ORDERED: ULTRAM50 MG PO (21:59)
--- NOTE | 2019-06-28 22:00 | NUR ---
PT ARRIVED TO FLOOR VIA STRETCHER, TRANSFERED TO BED, AOX4. PT VOIDED IN BED, LINENS CHANGED AND JUSTEN CARE PROVIDED. RIGHT LEG IN IMMOBILIZER. IV RIGHT FA INFUSING NS @ 100. SET UP MORPHINE ENGINEERING ANALYST, EDUCATED ON USE. PT STATES PAIN 5/10. REMINDED PT SHE WAS NPO FOR POSSIBLE SURGERY IN AM, VERBALIZED UNDERSTANDING. CALLED AND UPDATE GIVEN, ASKED TO BE CALLED IN AM WITH UPDATE REGARDING SURGERY. NUMBER ON CHART CORRECT. PT DENIES NEEDS AT THIS TIME. CL IN REACH, BED ALARM ON, WILL CTM
[2019-06-28 23:10] VITALS: BP 147/89; BMI 22.2
[2019-06-29] VITALS (13 sets, daily range): BP systolic 81–130; BP diastolic 37–72
[2019-06-29 04:27] LABS: BASOPHILS 0.1 % (0-2); EOSINOPHILS 0.1 % (0-7); HEMATOCRIT 33.3 % (36.0-48.0); HEMOGLOBIN 10.4 g/dL (12-16); IMMATURE GRANULOCYTES 0.1 % (0-5); LYMPHOCYTES 11.2 % (15-50); MCH 30.4 pg (26.0-34.0); MCHC 31.2 g/dL (31.0-37.0); MCV 97.4 fL (80.0-100.0); MEAN PLATELET VOLUME 9.5 fL (7.4-10.4); MONOCYTES 8.8 % (2-11); NEUTROPHILS 79.7 % (40-80); PLATELET COUNT 174 10x3/uL (130-400); RBC 3.42 10x6/uL (4.00-5.40); RDW 13.6 % (11.5-14.5); WBC 7.1 10x3/uL (4.8-10.8)
[2019-06-29 04:54] LABS: ALBUMIN 3.3 g/dL (3.4-5.0); ANION GAP 13.8 mmol/L (8-16); BILIRUBIN - TOTAL 0.48 mg/dL (0.2-1.3); CALCIUM 8.1 mg/dL (8.5-10.1); CARBON DIOXIDE 26.8 mmol/L (21.0-32.0); CREATININE - SERUM 1.1 mg/dL (0.6-1.3); POTASSIUM - SERUM 4.6 mmol/L (3.5-5.1)
--- NOTE | 2019-06-29 11:30 | NUR ---
PATIENT BACK FROM SURGERY AT THIS TIME. HR 140-155'S TO 130'S AND BACK. AMY FROM RECOVERY STATED THEY GAVE ESMOLOL FOR HEARTRATE AND THEN ANESTHESIA SIGNED OFF ON HER. HER BP IS 81/37 AND 90'S OVER 40. TRIED TO CALL ANESTHESIA BC AMY STATED THAT THEY SIGNED OFF AND SO HE BROUGHT HER OVER HERE FROM REC[facility]ERY LIKE THAT, BUT THAT HE UNDERSTOOD WHAT IM SAYING. CALLED DOWEL POINTER, ASKED TO COME OVER HERE TO HELP ME, STATED SHE HAD TO FAX SOMETHING THAT I SHOULD CALL DR. WATERS.
--- NOTE | 2019-06-29 11:52 | NUR ---
PATIENT BOLUS OF [address] WATERS. TELE PLACED BACK ON PATIENT AT THIS TIME. PATIENT IN UNCONTROLLE AFIB AT 136. PATIENT HAS PILLS RESTARTED FOR HEARTRATE. UNABLE TO GIVE THEM BC PATIENT BP AND PATIENT IS TOO DROWSY TO SWALLOW. TRYING TO INCREASE BP WITH BOLUS. WILL CONTINUE TO MONITOR AND LET DR. WATERS KNOW IF PATIENT CANT TAKE MED.
--- NOTE | 2019-06-29 14:04 | NUR ---
PATIENT NOW 98 CONTROLED AFIB ON TELEMETRY. BP IS STABLE AT 130/60. SAYS ARE 100 % ON 2 LNC. PATIENT IN BED WITH EYES CLOSED RESTING QUIETLY. CALLED AND NOTIFIED THAT SHE IS BEING TRANSFERRED TO 2131 BC SHE HAS TO BE TESTED FOR COVID 19 IN ORDER TO GO TO REHAB AT [facility]. IV INTACT. NO COMPLAINTS OR SIGNS OF DISTRESS. CALL LIGHT WITHIN REACH.
--- NOTE | 2019-06-29 14:53 | NUR ---
PATIENT VS STABLE. TRANSFERRED TO 2131 AT THIS TIME.
--- NOTE | 2019-06-29 15:16 | NUR ---
RECEIVED PT FROM MED SURG INTO DROPLET ISOLATION ROOM. COVID-19 TEST COLLECTED AND SENT TO LAB. VSS AND WNL. NS INFUSING @KVO VIA R.FOR PIV. NO S/S OF DISTRESS NOTED. WILL CTM.
--- NOTE | 2019-06-29 19:21 | NUR ---
VEIWING PT ON VIDEO MONITORING ATTEMPTING TO ENTER ROOM ONLY WHEN NEEDED BED IS LOW AND PT I HAS CALL LIGHT BY HER HAND RESP CAN BE OBSERVED AND THEY ARE EVEN AT 23 AND APPEAR NONE LABORED PT SEEMS TO BE RESTING WITH EYES CLOSED
--- NOTE | 2019-06-29 19:45 | NUR ---
PT AWOKE AND BEGIN HOLLERING OUT ENTERED ROOM FOR COMFORT AND TO BRING PAIN MED
[2019-06-30] VITALS: BP 150/101
--- NOTE | 2019-06-30 02:59 | NUR ---
I have reviewed this patient and I concur with the Shift Assessment completed by the Licensed Practical Nurse today this shift.
[2019-06-30 04:00] VITALS: BP 120/77
--- NOTE | 2019-06-30 04:50 | NUR ---
PT HAS AROUSED OVER LAST HOUR AND IS VERY CONFUSED TO TIME PLACE AND SITUATION I HAVE ATTEMPTED TO ORIENTATE AND PAIN MED GIVEN PER PT IS SCREAMING OUT BUT WILL NOT ANSWER QUESTIONSPT REMAINS IN BED LOW SR UP X3 I CAN VEIW PT WITH CLOSED MONITOR WELL
--- NOTE | 2019-06-30 04:56 | NUR ---
PT CONTINUES TO PULL AT LINES AND SCREAMING GOING TO CLEAN PT NOW
[2019-06-30 05:12] LABS: BASOPHILS 0.1 % (0-2); EOSINOPHILS 0.1 % (0-7); IMMATURE GRANULOCYTES 0.3 % (0-5); LYMPHOCYTES 18.1 % (15-50); MCH 30.4 pg (26.0-34.0); MCHC 30.8 g/dL (31.0-37.0); MCV 98.8 fL (80.0-100.0); MEAN PLATELET VOLUME 9.5 fL (7.4-10.4); MONOCYTES 12.7 % (2-11); NEUTROPHILS 68.7 % (40-80); PLATELET COUNT 142 10x3/uL (130-400); RDW 14.1 % (11.5-14.5); WBC 7.1 10x3/uL (4.8-10.8)
[2019-06-30 05:18] LABS: HEMOGLOBIN 7.7 g/dL (12-16); RBC 2.53 10x6/uL (4.00-5.40)
[2019-06-30 05:21] LABS: ANION GAP 14.1 mmol/L (8-16); CALCIUM 7.4 mg/dL (8.5-10.1); CARBON DIOXIDE 21.7 mmol/L (21.0-32.0)
[2019-06-30 05:27] LABS: POTASSIUM - SERUM 3.8 mmol/L (3.5-5.1)
--- NOTE | 2019-06-30 05:27 | NUR ---
EXTREMLY CONFUSED AND PULLING AT ALL LINES AND SCREAMING ALSO SCREAMING MOMMA! PT IS NOT ATTEMPTING TO LEAVE BED I AM ATTEMPTING TO KEEP IV IN PLACE
--- NOTE | 2019-06-30 05:46 | NUR ---
CONTINUES TO SCREAM AND THROUGH LINNEN PT DOES DENY PAIN SCREAMS TO HAVE ME TAKE OFF LEG BRACE ALL ATTEMPTS TO ORIENT PT ARE FAILING PT ALSO IS THROWING O2 IN FLOOR IV REMAINS PATENT AT THIS TIME I HAVE REAPPLIED HEART MONITOR AND WILL CONTINURE TO OBSERVE PT
--- NOTE | 2019-06-30 06:11 | NUR ---
STAYED WITH PT SEVERAL MINUTES AND REATTACHED LINES PT ATTEMPTED TO TWIST AND PINCH MY FINGERS PT CALMED BUT CONTIMUED KICKING AND PULLING LINES AND SCREAMING WHEN I LEFT THE ROOM
--- NOTE | 2019-06-30 06:28 | NUR ---
PT NOW HAS TAKEN OFF THE HOSE FROM THE SCD AND SHE IS SWATING THE SR WITH IT CONTINUES TO SCREAM OUT
--- NOTE | 2019-06-30 09:47 | NUR ---
BLOOD BEGAN @0940. PRETRANFUSION VSS AND WNL. PT IS SEVERELY DISORIENTED AND COMBATIVE. SHE CONTINUES TO SLAP AT MY HAND AND REFUSES TO TAKE ANY MEDICATION FROM ME STATING "I WONT TAKE ANYTHING YOU HAVE TO GIVE ME LONG I AM IN THIS HOSPITAL." ATTEMPTED TO REORIENT PT AND EDUCATE ON THE IMPORTANCE OF COMPLIANCE AND SHE CONTINUED TO REFUSE AND DEGRADE ME. PT HAD EPISODE OF INCONTINENCE OF URINE. ATTEMPTED TO CLEAN PT AND SHE REFUSED TO ALLOW ME TO TOUCH HER. BLOOD CURRENTLY INFUSING VIA R.FOR PIV. NO S/S OF DISTRESS OR TRANFUSION REACTION. PT BEDFAST. FALL ALARM ON. BED RAILS UP X3. WILL CTM.
--- NOTE | 2019-06-30 09:54 | OP ---
PATIENT NAME: NOE ESPINOSA MEDICAL RECORD: [id number] :[birth year] LOCATION:D. 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 PROCEDURE: Intramedullary rodding of a supracondylar femur fracture - retrograde. SURGEON: Eric Hunter MD SEPTIC TANK SERVICER: FRAN Jimenes INTRAOPERATIVE COMPLICATIONS: None. SUMMARY OF PATHOLOGIC FINDINGS: The patient had a supracondylar femur fracture consistent with the preoperative radiographs. IMPLANTS USED: [place] supracondylar locking nail 170 x 13, interlocked with 5 screws. OPERATIVE SUMMARY IN DETAIL: After obtaining appropriate preoperative orthopedic surgery consent as well as anesthetic consultation, evaluation and clearance, the patient was brought to the operating room and placed on the operating table in a supine position. After adequate general laryngeal mask airway was administered, the patient's right lower extremity was prepped and draped in routine sterile fashion. Under fluoroscopic guidance, the fracture was placed into a well-reduced position. Incision was made over the previous total knee arthroplasty incision. Guide pin was placed on AP and lateral planes. Primary reaming was done by placement of the ball tip guidewire. Reaming was done to 35-1/2 and then the 170 supracondylar nail from [place] was put into place under fluoroscopic guidance to the appropriate depth. Distal interlocking, which include the most proximal medial and lateral as well as the [address] transverse [address] put into place. The most distal of which was right at the lugs of the total knee, it was not used. Having completed this, a small amount of traction was applied to recreate the appropriate length. Again, all under fluoroscopy, proximal interlocking screws times [address] were then [address] into place. Having completed this, final radiographs were taken and submitted for radiologist review. Wounds were all copiously irrigated and closed in the usual fashion by FRAN Jimenes. Sterile dressings were applied. The patient was awakened and taken to the recovery room in stable condition. All final needle and sponge counts were correct. TRANSINT:[id number] Voice Confirmation ID: [id number] DOCUMENT ID: [id number] OPERATIVE REPORT [id number] NOE ESPINOSA MD, ERIC HOPKINS at 0954 CC: [id number] DICTATION DATE: 06/29/19 1011 GAME TECHNICIAN: 06/29/19 1201 ADM IN [facility] [id number] [place] [address]
--- NOTE | 2019-06-30 11:46 | NUR ---
ENTERED THE ROOM TO FIND THAT THE PATIENT HAD PULLED OUT HER PIV WITH CATHETER TIP FULLY INTACT WITH APPROX 25ML OF BLOOD REMAINING TO INFUSE. STOPPED INFUSION. PT STILL COMBATIVE AND REFUSES TO LET ME START ANOTHER PIV. NOTIFIED WHO TELEPHONE ORDERED 2MG IM HALDOL. ADMININSTERED MEDICATION. WILL ATTEMPT ANOTHER PIV. WILL CTM.
[2019-06-30 14:21] VITALS: BP 109/59
--- NOTE | 2019-06-30 14:44 | NUR ---
22GA PLACED TO THE RIGHT FOREARM X1 ATTEMPT. NS INFUSING @100ML/HR. NO S/S OF DISTRESS NOTED. PT DENIES ANY NEEDS. VSS AND WNL. WILL CTM.
--- NOTE | 2019-06-30 19:32 | NUR ---
RECEIVED LAYING IN BED WITH NO GOWN OR COVERS ON. OFF GOING REPORTED SHE HAS BEEN THAT WAY ALL DAY. COMPLETE BED CHANGE AND FRESH GOWN PLACE ON HER. BEFORE LEAVING ROOM HAD TO CHANGE AGAIN. TELEMETRY NOT ON AND WILL ATTEMPT TO PLACE LATER DUE TO CONFUSION. BRACEW TO RT THIGH. HAD ORIF YESTERDAY. REMAINS BED FST AT THIS TIME. BED ALARM ON. RT ARM IV INFILTRATED. RED AND SWOLLEN. IV D/C'D. C/O PAIN WHEN ARM IS TOUCHED. WILL RESTART IV WHEN SHE SETTLES DOWN.
--- NOTE | 2019-07-01 01:43 | NUR ---
TARA PLACED EARLIER THIS SHIFT. PT PULLED IT OUT. TARA D/C'Miguelito.
[2019-07-01 06:03] LABS: BASOPHILS 0.1 % (0-2); EOSINOPHILS 0 % (0-7); HEMATOCRIT 24.7 % (36.0-48.0); HEMOGLOBIN 7.9 g/dL (12-16); IMMATURE GRANULOCYTES 0.3 % (0-5); LYMPHOCYTES 11.4 % (15-50); MCH 30.5 pg (26.0-34.0); MEAN PLATELET VOLUME 9.9 fL (7.4-10.4); MONOCYTES 12.6 % (2-11); NEUTROPHILS 75.6 % (40-80); PLATELET COUNT 115 10x3/uL (130-400); RBC 2.59 10x6/uL (4.00-5.40); RDW 14.6 % (11.5-14.5); WBC 7.5 10x3/uL (4.8-10.8)
[2019-07-01 06:09] LABS: MCV 95.4 fL (80.0-100.0)
[2019-07-01 06:22] LABS: CALCIUM 7.9 mg/dL (8.5-10.1); CARBON DIOXIDE 21.6 mmol/L (21.0-32.0); CHLORIDE - SERUM 105 mmol/L (98-107); GLUCOSE 93 mg/dL (74-106); SODIUM 138 mmol/L (136-145)
[2019-07-01 06:23] LABS: CALC OSMOLALITY 274 mosm/kg (275-300); CREATININE - SERUM 0.6 mg/dL (0.6-1.3); POTASSIUM - SERUM 3.1 mmol/L (3.5-5.1); UREA NITROGEN 10 mg/dL (7-18); eGFR NON AFRICAN AMERICAN > 90 mL/min (90-120)
--- NOTE | 2019-07-01 07:00 | NUR ---
PT IS BEING MONITORED PER VIDEO MONITORING. APPEARS TO BE RESTING, EYES CLOSED, LAYING SUPINE. CHANGING POSITIONS EVERY COUPLE OF MINUTES. RR SEEM TO RISE AND FALL EFFORTLESSLY. NO SIGNS OF DISTRESS. CALL LIGHT SEEN BY HAND. BED IN LOWEST POSITION. WILL CONTINUE TO MONITOR.
--- NOTE | 2019-07-01 09:00 | NUR ---
PT SITTING UP IN BED, EYES CLOSED, RR EVEN AND UNLABORED. BM X1. PT CLEANED, LINENS CHANGED. ASSISTED WITH EATING. CONSUMED 25% OF HER BREAKFAST. ASSESSMENT COMPLETE. PT HAD ANOTHER BM. CLEANED, LINENS CHANGED. BED RAILS UP X2. REPOSITIONED IN BED TO COMFORT. ASSISTED WITH TURNING TV ON. BED IN LOWEST POSITION. REORIENTED TO CALL LIGHT. WILL CONTINUE TO MONITOR.
[2019-07-01 09:10] VITALS: BP 163/108
[2019-07-01 09:41] LABS: APTT 40.6 SECONDS (22.8-39.4); INR 1.63 (0.85-1.17); PROTIME 19.2 SECONDS (11.6-15.0)
--- NOTE | 2019-07-01 11:30 | NUR ---
CALL RECCIEVED FROM [facility], INFECTION CONTROL. TEST CAME BACK NEGATIVE. SPOKE WITH DR. BRITO, STATES TO D/C BACK TO ASSISTED WHEN FINISHED WITH BLOOD TRANSFUSION
--- NOTE | 2019-07-01 13:03 | MORECARE ---
CASE MANAGEMENT DISCHARGE SUMMARY PATIENT: NOE ESPINOSA UNIT: [id number] ADM DATE: 06/28/19 AGE: 84 : 33 SEX: F ROOM/BED: D.7582 AUTHOR: TRESA SHRESTHA PHYSICIAN: REFERRING PHYSICIAN: GABBIE WATERS MD DATE OF SERVICE: 07/01/19 Discharge Plan Patient Name: NOE ESPINOSA Facility: [facility]:[place] : 1935 Planned Disposition: Fpc Facility Anticipated Discharge Date: Discharge Date: Expected LOS: Initial Reviewer: [email or web address] Initial Review Date: 06/28/2019 Generated: 07/01/19 2:03 pm Comments DCP- Discharge Planning Updated by [email or web address]: Milli Krueger on 07/01/19 12:[address] I HAVE ALSO ENTERED NEW OT AND PT ORDERS DCP- Discharge Planning Updated by [email or web address]: Milli Krueger on 07/01/19 11:[address] SPOKE WITH TARA AT [facility], SHE STATED THAT THEY HAVE NOT RECEIVED ANY PAPERWORK FOR THIS REFERRAL. THERE WILL NOT BE ANYONE TO REVIEW IT TILL WEDNESDAY MORNING. I WILL START THAT PROCESS DCP- Discharge Planning Updated by [email or web address]: Sil Lopez on 06/29/19 6:[address] De León called and stated that patient is wanting to go to [facility] for Rehab and he wants to know if they are requiring Covid testing prior to admitting. CM called and spoke with admissions to find out requirements and they do require CoVid testing prior to admission and it can't be Quick Test. CoVid test ordered for placement purposes. External Providers External Provider: [facility] Next Contact Date: Service Request Date: Service Type: Resolution: Reviewer: Comments: Patient Name: NOE ESPINOSA Page [phone] at 1303 All edits/amendments must be made on the electronic document DICTATION DATE: 07/01/19 1303 SWITCH COUPLER: ALFRED 07/01/19 1303 RPT#: [id number] DC DATE: STATUS: ADM IN [facility] [address] [place] [address] END OF REPORT
--- NOTE | 2019-07-01 16:20 | NUR ---
PT TRANSFERED TO 2226. NURSE MADE AWARE.
--- NOTE | 2019-07-01 19:10 | NUR ---
PATIENT YELLING OUT DURING SHIFT REPORT. ENTERED PATIENT ROOM. PROVIDED SUPPORT AND COMFORT TO PATIENT. PROVIDED REASSURANCE TO PATIENT. PATIENT EASILY CALMED. RIGHT FEMUR IMMOBILIZER AND TELE REMAINS IN PLACE. COVERED PATIENT UP AND HELD HAND. PROVIDED SUPPORT AND ANSWERED QUESTIONS FOR SEVERAL MINUTES. PATIENT RECEPTIVE TO SUPPORT. DENIES PAIN. DENIES NEEDS. CPOC.
[2019-07-01 20:00] VITALS: BP 145/67
--- NOTE | 2019-07-01 22:00 | NUR ---
PATIENT PULLED DOWN COVERS. ASKING FOR MOTHER. PROVIDED REDIRECTION TO PATIENT TO AVOID DISTRESS. PATIENT STATES SHE KNOWS SHE HAD SURGERY AND SHES IN THE HOSPITAL. PATIENT DENIES PAIN. PROVIDED WITH WARM BLANKET AND TUCKED IN. PATIENT THANKED NURSE. DENIES FURTHER NEEDS. DEEPALI ALARM ON AND CLOSE TO NURSES STATION FOR MONITORING.
--- NOTE | 2019-07-01 23:41 | NUR ---
RESTING WITH ON SIGNS OR SYMPTOMS OF DISTRESS. CPOC.
[2019-07-02 04:00] VITALS: BP 192/93
--- NOTE | 2019-07-02 04:26 | NUR ---
I have reviewed this patient and I concur with the Shift Assessment completed by the Licensed Practical Nurse today this shift.
[2019-07-02 05:12] LABS: BASOPHILS 0 % (0-2); EOSINOPHILS 0 % (0-7); HEMATOCRIT 28.6 % (36.0-48.0); HEMOGLOBIN 9.3 g/dL (12-16); IMMATURE GRANULOCYTES 0.1 % (0-5); LYMPHOCYTES 6.7 % (15-50); MCH 30.2 pg (26.0-34.0); MCHC 32.5 g/dL (31.0-37.0); MEAN PLATELET VOLUME 9.9 fL (7.4-10.4); MONOCYTES 8.9 % (2-11); NEUTROPHILS 84.3 % (40-80); RBC 3.08 10x6/uL (4.00-5.40); RDW 15.8 % (11.5-14.5); WBC 7.2 10x3/uL (4.8-10.8)
[2019-07-02 05:15] LABS: MCV 92.9 fL (80.0-100.0); PLATELET COUNT 146 10x3/uL (130-400)
[2019-07-02 05:26] LABS: INR 1.58 (0.85-1.17); PROTIME 18.7 SECONDS (11.6-15.0)
--- NOTE | 2019-07-02 07:37 | NUR ---
resting in bed, eyes closed, no distress noted, bed alarm in place, monitor confusion,
[2019-07-02 09:50] VITALS: BP 171/106
[2019-07-02 13:40] VITALS: BP 130/79
[2019-07-02 16:00] VITALS: BP 152/78
--- NOTE | 2019-07-02 19:10 | NUR ---
PATIENT RESTING WITH EYES CLOSED WHEN ENTERING THE ROOM. PATIENT AROUSES TO VERBAL STIMULI. PATIENT CONFUSED TO TIME PLACE AND SITUATION. PATIENT HAS RIGHT EXTRMETY IMMOBILIZER ON. SOME SWELLING NOTED. PATIENT DENIES PAIN WHEN ASKED AND DOES NOT APPEAR IN PAIN SHE IS CALM AND NO IRRITATION OR RESTLESS NOTED. PATIENT HAS LEFT AC IV THAT IS PATENT AND INFUSING NS @ 50. INCONTINENT. ASSESSED SHEETS, PATIENT DRY. CLOSE TO NURSES STATION FOR MONITORING. CPOC.
[2019-07-02 20:00] VITALS: BP 150/79
--- NOTE | 2019-07-02 20:30 | NUR ---
ASSESSED SHEETS. PATIENT INCONTINENT OF BLADDER. PAD CHANGE PROVIDED. PATIENT TOELRATED WELL. CPOC.
--- NOTE | 2019-07-02 23:45 | NUR ---
ASSESSED SHEETS. INCONTINENT OF BLADDER. PAD CHANGE PROVIDED. CPOC.
[2019-07-03 00:33] VITALS: BP 149/85
--- NOTE | 2019-07-03 01:41 | NUR ---
RESTING WITH NO SIGNS OR SYMPTOMS OF DISCOMFORT AT THIS TIME. DEEPALI ALARM ON. CLSOE TO NURSES STATION FOR MONITORING. CPOC.
--- NOTE | 2019-07-03 01:45 | NUR ---
ASSESSED BED. SHEETS DRY. PATIENT RESTING WITH NO DISTRESS NOTED. CPOC.
[2019-07-03 05:22] LABS: BASOPHILS 0 % (0-2); EOSINOPHILS 0 % (0-7); HEMATOCRIT 29.1 % (36.0-48.0); HEMOGLOBIN 9.4 g/dL (12-16); IMMATURE GRANULOCYTES 0.1 % (0-5); LYMPHOCYTES 7.4 % (15-50); MCH 29.9 pg (26.0-34.0); MCHC 32.3 g/dL (31.0-37.0); MCV 92.7 fL (80.0-100.0); MEAN PLATELET VOLUME 9.3 fL (7.4-10.4); MONOCYTES 9.2 % (2-11); NEUTROPHILS 83.3 % (40-80); RBC 3.14 10x6/uL (4.00-5.40); RDW 15.4 % (11.5-14.5); WBC 7.3 10x3/uL (4.8-10.8)
[2019-07-03 05:28] LABS: PLATELET COUNT 186 10x3/uL (130-400)
[2019-07-03 05:33] LABS: CALC OSMOLALITY 278 mosm/kg (275-300); CALCIUM 7.7 mg/dL (8.5-10.1); CARBON DIOXIDE 17.8 mmol/L (21.0-32.0); CHLORIDE - SERUM 107 mmol/L (98-107); CREATININE - SERUM 0.7 mg/dL (0.6-1.3); GLUCOSE 107 mg/dL (74-106); POTASSIUM - SERUM 3.2 mmol/L (3.5-5.1); SODIUM 140 mmol/L (136-145); eGFR NON AFRICAN AMERICAN 84 mL/min (90-120)
[2019-07-03 05:38] LABS: INR 2.07 (0.85-1.17)
[2019-07-03 05:40] VITALS: BP 158/79
[2019-07-03 05:40] LABS: UREA NITROGEN 13 mg/dL (7-18)
[2019-07-03] MEDS ORDERED: ULTRAM50 MG PO (07:54)
[2019-07-03 09:05] VITALS: BP 178/103
--- NOTE | 2019-07-03 12:01 | MORECARE ---
CASE MANAGEMENT DISCHARGE SUMMARY PATIENT: NOE ESPINOSA UNIT: [id number] ADM DATE: 06/28/19 AGE: 84 : 33 SEX: F ROOM/BED: D.2223 AUTHOR: FADYDOC PHYSICIAN: REFERRING PHYSICIAN: GABBIE WATERS MD DATE OF SERVICE: 07/03/19 Discharge Plan Patient Name: NOE ESPINOSA Facility: [facility]:[place] : 1935 Planned Disposition: Half-Way Facility Anticipated Discharge Date: Discharge Date: Expected LOS: Initial Reviewer: [email or web address] Initial Review Date: 06/28/2019 Generated: 07/03/19 1:00 pm Comments DCP- Discharge Planning Updated by [email or web address]: Milli Krueger on 07/03/19 10:[address] [facility] will pick patient up at 12:30 I noticed her temp was 101.1 ax, they reassessed the temp and it was 99.[address] Waters to let him know. new ordered received for ok to dc , obtain urine and give Tylenol. I let Erica the nurse know what Dr Waters said. I attempted to speak with the patient about discharging today and she said she didn't feel good and her stomach was hurting. Her RR was 28. Erica was going to call Dr Waters CM will continue to follow and assist as needed DCP- Discharge Planning Updated by [id number]: Milli Krueger on 07/01/19 12:[address] I HAVE ALSO ENTERED NEW OT AND PT ORDERS DCP- Discharge Planning Updated by [email or web address]: Milli Krueger on 07/01/19 11:[address] SPOKE WITH TARA AT [facility], SHE STATED THAT THEY HAVE NOT RECEIVED ANY PAPERWORK FOR THIS REFERRAL. THERE WILL NOT BE ANYONE TO REVIEW IT TILL WEDNESDAY MORNING. I WILL START THAT PROCESS DCP- Discharge Planning Updated by [id number]: Sli Lopez on 06/29/19 6:[address] De León called CM and stated that patient is wanting to go to [facility] for Rehab and he wants to know if they are requiring Covid testing prior to admitting. CM called and spoke with admissions to find out requirements and they do require CoVid testing prior to admission and it can't be Quick Test. CoVid test ordered for placement purposes. Last DP export: 07/01/19 12:03 p Patient Name: NOE ESPINOSA Page [id number] at 1201 All edits/amendments must be made on the electronic document DICTATION DATE: 07/03/19 1200 MOBILE PARAMEDICAL EXAMINER: ALFRED 07/03/19 1200 RPT#: [id number] DC DATE: STATUS: ADM IN [facility] [address] [place] [address] END OF REPORT
--- NOTE | 2019-07-03 12:15 | MORECARE ---
CASE MANAGEMENT DISCHARGE SUMMARY PATIENT: NOE ESPINOSA UNIT: [id number] ADM DATE: 06/28/19 AGE: 84 : 33 SEX: F ROOM/BED: D.2223 AUTHOR: TRESA SHRESTHA PHYSICIAN: REFERRING PHYSICIAN: GABBIE WATERS MD DATE OF SERVICE: 07/03/19 Discharge Plan Patient Name: NOE ESPINOSA Facility: [facility]:[place] : 1935 Planned Disposition: Senior Living Facility Anticipated Discharge Date: Discharge Date: Expected LOS: Initial Reviewer: [email or web address] Initial Review Date: 06/28/2019 Generated: 07/03/19 1:14 pm Comments DCP- Discharge Planning Updated by [email or web address]: Milli Krueger on 07/03/19 11:[address]PO[address] WITH DR WATERS, DC PLACED ON HOLD, NEW ORDERS RECEIVED FOR XR AND BLOOD CULTURES. I SPOKE WITH FRITZ ( HER NURSE) ABOUT ABOVE. I CALLED KHUSHI AT [facility] ABOUT DC HOLD. CM TO FOLLOW AND ASSIST NEEDED DCP- Discharge Planning Updated by [id number]: Milli Krueger on 07/03/19 10:[address] [facility] will pick patient up at 12:30 I noticed her temp was 101.1 ax, they reassessed the temp and it was 99.[address] Waters to let him know. new ordered received for ok to dc , obtain urine and give Tylenol. I let Fritz the nurse know what Dr Waters said. I attempted to speak with the patient about discharging today and she said she didn't feel good and her stomach was hurting. Her RR was 28. Fritz was going to call Dr Waters CM will continue to follow and assist as needed DCP- Discharge Planning Updated by [id number]: Milli Krueger on 07/01/19 12:[address] I HAVE ALSO ENTERED NEW OT AND PT ORDERS DCP- Discharge Planning Updated by [id number]: Milli Krueger on 07/01/19 11:[address] SPOKE WITH TARA AT [facility], SHE STATED THAT THEY HAVE NOT RECEIVED ANY PAPERWORK FOR THIS REFERRAL. THERE WILL NOT BE ANYONE TO REVIEW IT TILL WEDNESDAY MORNING. I WILL START THAT PROCESS DCP- Discharge Planning Updated by [email or web address]: Sil Lopez on 06/29/19 6:[address] De León called CM and stated that patient is wanting to go to [facility] for Rehab and he wants to know if they are requiring Covid testing prior to admitting. CM called and spoke with admissions to find out requirements and they do require CoVid testing prior to admission and it can't be Quick Test. CoVid test ordered for placement purposes. Last DP export: 07/03/19 11:01 a Patient Name: NOE ESPINOSA Page [id number] at 1215 All edits/amendments must be made on the electronic document DICTATION DATE: 07/03/191213 DESIGN ASSISTANT: ALFRED 07/03/191213 RPT#: [id number] DC DATE: STATUS: ADM IN [facility] [address] [place] [address] END OF REPORT
[2019-07-03 12:29] LABS: BILIRUBIN NEGATIVE (NEGATIVE); GLUCOSE 50 mg/dL (NEGATIVE); KETONE MODERATE mg/dL (NEGATIVE); NITRITE NEGATIVE (NEGATIVE); SPECIFIC GRAVITY 1.015 (1.005-1.020); UROBILINOGEN NORMAL (NORMAL)
[2019-07-03 12:30] LABS: BACTERIA FEW /hpf (NEGATIVE); EPITHELIAL CELLS NSEEN /hpf (0-5); RED CELLS - URINE 0-5 /hpf (0-5); WHITE CELLS - URINE 0-5 /hpf (NEGATIVE)
[2019-07-03 12:35] VITALS: BP 152/81
--- NOTE | 2019-07-03 13:27 | NUR ---
PT IS [facility] BED, REFUSED LUNCH, STATED SHE IS NOT FEELING WELL, PT PLEASANTLY CONFUSED, NO S/SX OF DISTRESS, CONTINUE WITH PLAN OF CARE
[2019-07-03 13:36] VITALS: Ht 149.9 cm; Wt 49.9 kg
--- NOTE | 2019-07-03 14:13 | MORECARE ---
CASE MANAGEMENT DISCHARGE SUMMARY PATIENT: NOE ESPINOSA UNIT: [id number] ADM DATE: 06/28/19 AGE: 84 : 33 SEX: F ROOM/BED: D.2223 AUTHOR: TRESA SHRESTHA PHYSICIAN: REFERRING PHYSICIAN: GABBIE WATERS MD DATE OF SERVICE: 07/03/19 Discharge Plan Patient Name: NOE ESPINOSA Facility: [facility]:[place] : 1935 Planned Disposition: Alf Facility Anticipated Discharge Date: Discharge Date: Expected LOS: Initial Reviewer: [email or web address] Initial Review Date: 06/28/2019 Generated: 07/03/19 3:13 pm Comments DCP- Discharge Planning Updated by [email or web address]: Milli Krueger on 07/03/19 11:[address] SPO[address] WATERS, DC PLACED ON HOLD, NEW ORDERS RECEIVED FOR XR AND BLOOD CULTURES. I SPOKE WITH FRIZT ( HER NURSE) ABOUT ABOVE. I CALLED KHUSHI AT [facility] ABOUT DC HOLD. CM TO FOLLOW AND ASSIST NEEDED DCP- Discharge Planning Updated by [id number]: Milli Krueger on 07/03/19 10:[address] [facility] at 12:30 I noticed her temp was 101.1 ax, they reassessed the temp and it was 99.[address] Waters to let him know. new ordered received for ok to dc , obtain urine and give Tylenol. I let Fritz the nurse know what Dr Waters said. I attempted to speak with the patient about discharging today and she said she didn't feel good and her stomach was hurting. Her RR was 28. Fritz was going to call Dr Waters CM will continue to follow and assist as needed DCP- Discharge Planning Updated by [email or web address]: Milli Krueger on 07/01/19 12:[address] I HAVE ALSO ENTERED NEW OT AND PT ORDERS DCP- Discharge Planning Updated by [id number]: Milli Krueger on 07/01/19 11:[address] SPOKE WITH TARA AT [facility], SHE STATED THAT THEY HAVE NOT RECEIVED ANY PAPERWORK FOR THIS REFERRAL. THERE WILL NOT BE ANYONE TO REVIEW IT TILL SELENE MORNING. I WILL START THAT PROCESS DCP- Discharge Planning Updated by [email or web address]: Sil Lopez on 06/29/19 6:[address] De León called CM and stated that patient is wanting to go to [facility] for Rehab and he wants to know if they are requiring Covid testing prior to admitting. CM called and spoke with admissions to find out requirements and they do require CoVid testing prior to admission and it can't be Quick Test. CoVid test ordered for placement purposes. DCPIA - Discharge Planning Initial Assessment Updated by [id number]: Milli Krueger on 07/03/19 2:11 pm * PCP JT * Pharmacy [facility] * Preadmission Environment Home with Family * ADLs Partial Dependent * Partial ADLs (Assistance needed) Ambulation * Equipment Rolling Walker * List name and contact numbers for known caregivers / representatives who currently or will assist patient after discharge: CASEY (SPOUSE) [phone] * Verbal permission to speak to the caregivers and representatives has been obtained from the patient. N/A * Community resources currently utilized None * Additional services required to return to the preadmission environment? Yes * Can the patient safely return to the preadmission environment? No * Has this patient been hospitalized within the prior 30 days at any hospital? No Last DP export: 07/03/19 11:15 a Patient Name: NOE ESPINOSA Page [id number] at 1413 All edits/amendments must be made on the electronic document DICTATION DATE: 07/03/191411 INTENSIVIST: ALFRED 07/03/191411 RPT#: [id number] DC DATE: STATUS: ADM IN [facility] [address] [place] [address] END OF REPORT
--- NOTE | 2019-07-03 14:22 | MORECARE ---
CASE MANAGEMENT DISCHARGE SUMMARY PATIENT: NOE ESPINOSA UNIT: [id number] ADM DATE: 06/28/19 AGE: 84 : 33 SEX: F ROOM/BED: D.2223 AUTHOR: FADYDOC PHYSICIAN: REFERRING PHYSICIAN: GABBIE WATERS MD DATE OF SERVICE: 07/03/19 Discharge Plan Patient Name: NOE ESPINOSA Facility: [facility]:[place] : 1935 Planned Disposition: Half-Way Facility Anticipated Discharge Date: Discharge Date: Expected LOS: Initial Reviewer: [email or web address] Initial Review Date: 06/28/2019 Generated: 07/03/19 3:21 pm Comments DCP- Discharge Planning Updated by [email or web address]: Milli Krueger on 07/03/19 1:[address] I spoke with Manoj ( spouse ) to let him know that her discharge was placed on hold because of her fever. He stated that before she was admitted to the hospital she was pretty independent with her care and all she used was a walker and him. I told him that we would let him know when she gets discharged to go to [facility]. CM will continue to follow and assist as needed DCP- Discharge Planning Updated by [email or web address]: Milli Krueger on 07/03/19 11:[address] WATERS, DC PLACED ON HOLD, NEW ORDERS RECEIVED FOR XR AND BLOOD CULTURES. I SPOKE WITH FRITZ ( HER NURSE) ABOUT ABOVE. I CALLED KHUSHI AT [facility] ABOUT DC HOLD. CM TO FOLLOW AND ASSIST NEEDED DCP- Discharge Planning Updated by [id number]: Milli Krueger on 07/03/19 10:[address] [facility] will pick patient up at 12:30 I noticed her temp was 101.1 ax, they reassessed the temp and it was 99.[address] Waters to let him know. new ordered received for ok to dc , obtain urine and give Tylenol. I let Frtiz the nurse know what Dr Waters said. I attempted to speak with the patient about discharging today and she said she didn't feel good and her stomach was hurting. Her RR was 28. Fritz was going to call Dr Jt CM will continue to follow and assist as needed DCP- Discharge Planning Updated by [id number]: Milli Krueger on 07/01/19 12:[address] I HAVE ALSO ENTERED NEW OT AND PT ORDERS DCP- Discharge Planning Updated by [id number]: Milli Krueger on 07/01/19 11:[address] SPOKE WITH TARA AT [facility], SHE STATED THAT THEY HAVE NOT RECEIVED ANY PAPERWORK FOR THIS REFERRAL. THERE WILL NOT BE ANYONE TO REVIEW IT TILL Wednesday. I WILL START THAT PROCESS DCP- Discharge Planning Updated by [email or web address]: Sil Lopez on 06/29/19 6:[address] De León called CM and stated that patient is wanting to go to [facility] for Rehab and he wants to know if they are requiring Covid testing prior to admitting. CM called and spoke with admissions to find out requirements and they do require CoVid testing prior to admission and it can't be Quick Test. CoVid test ordered for placement purposes. DCPIA - Discharge Planning Initial Assessment Updated by [email or web address]: Milli Krueger on 07/03/19 2:11 pm * PCP JT * Pharmacy [facility] * Preadmission Environment Home with Family * ADLs Partial Dependent * Partial ADLs (Assistance needed) Ambulation * Equipment Rolling Walker * List name and contact numbers for known caregivers / representatives who currently or will assist patient after discharge: MANOJ (SPOUSE) [phone] * Verbal permission to speak to the caregivers and representatives has been obtained from the patient. N/A * Community resources currently utilized None * Additional services required to return to the preadmission environment? Yes * Can the patient safely return to the preadmission environment? No * Has this patient been hospitalized within the prior 30 days at any hospital? No Last DP export: 07/03/19 1:13 p Patient Name: NOE ESPINOSA Page [id number] at 1422 All edits/amendments must be made on the electronic document DICTATION DATE: 07/03/191420 TEACHER PRESCHOOL: ALFRED 07/03/191420 RPT#: [id number] DC DATE: STATUS: ADM IN [facility] [address] [place] [address] END OF REPORT
--- NOTE | 2019-07-03 15:09 | NUR ---
PT WOKE UP AND STATED SHE WAS HUNGRY, TRAY STILL IN ROOM, ASSISTED PT WITH LUNCH, SHE HAD ALL OF HER TEA AND ATE 3 SPOONFULS OF CHICKEN POT PIE. NO OTHER NEEDS VOICED, CONTINUE WITH PLAN OF CARE
--- NOTE | 2019-07-03 16:54 | NUR ---
I have reviewed this patient and I concur with the Shift Assessment completed by the Licensed Practical Nurse today this shift.
[2019-07-03 17:13] VITALS: BP 148/72
[2019-07-03 20:05] VITALS: BP 148/79
[2019-07-04] VITALS: BP 139/74
[2019-07-04 04:00] VITALS: BP 181/94
--- NOTE | 2019-07-04 07:50 | NUR ---
PT LYING IN BED ASLEEP, PER MANAGER [employer], PT BP IS 142/91 AND TEMP IS 99.2 AXILLARY, WILL ADMINISTER TYLENOL FOR FEVER AND CONTINUE WITH PLAN OF CARE
[2019-07-04 08:48] VITALS: BP 141/97
--- NOTE | 2019-07-04 10:12 | NUR ---
CALLED [facility] GAVE REPORT TO JIE, NURSE INTERRUPTED REPORT AND ASKED IF PT HAD TEMP TAKEN, WHEN LAST FEVER WAS AND IF SHE WAS TESTED FOR COVID. AFTER ANSWERING HER JIE HUNG UP AND DID NOT GET THE REST OF REPORT. PT IS A FEEDER WELL NONWEIGHT BEARING ON RLE AND LIKES COFFEE. PT ALSO HAS DEMENTIA. NON OF THIS INFORMATION WAS GIVEN TO NURSE WHO TOOK REPORT BECAUSE SHE JUST HUNG UP. CALLED AMBULANCE FOR TRANSPORTATION
--- NOTE | 2019-07-04 10:47 | NUR ---
I have reviewed this patient and I concur with the Shift Assessment completed by the Licensed Practical Nurse today this shift.
--- NOTE | 2019-07-04 13:29 | NUR ---
PT K+ IS STILL 3.4 AFTER 40MEQ OF K+, ADMINISTERED K+ PER PROTOCOL AND ORDER RECHECK
--- NOTE | 2019-07-04 22:10 | MORECARE ---
CASE MANAGEMENT DISCHARGE SUMMARY PATIENT: NOE ESPINOSA UNIT: [id number] ADM DATE: 06/28/19 AGE: 84 : 33 SEX: F ROOM/BED: D.2223 AUTHOR: TRESA SHRESTHA PHYSICIAN: REFERRING PHYSICIAN: GABBIE WATERS MD DATE OF SERVICE: 07/04/19 Discharge Plan Patient Name: NOE ESPINOSA Facility: [facility]:[place] : 1935 Planned Disposition: Senior Care Facility Anticipated Discharge Date: Discharge Date: 07/04/2019 Expected LOS: Initial Reviewer: [id number] Initial Review Date: 06/28/2019 Generated: 07/04/19 11:09 pm Comments DCP- Discharge Planning Updated by [email or web address]: Milli Krueger on 07/03/19 1:[address] I spoke with Manoj ( spouse ) to let him know that her discharge was placed on hold because of her fever. He stated that before she was admitted to the hospital she was pretty independent with her care and all she used was a walker and him. I told him that we would let him know when she gets discharged to go to [facility]. CM will continue to follow and assist as needed DCP- Discharge Planning Updated by [email or web address]: Milli Krueger on 07/03/19 11:[address]PO[address] WATERS, DC PLACED ON HOLD, NEW ORDERS RECEIVED FOR XR AND BLOOD CULTURES. I SPOKE WITH FRITZ ( HER NURSE) ABOUT ABOVE. I CALLED KHUSHI AT [facility] ABOUT DC HOLD. CM TO FOLLOW AND ASSIST NEEDED DCP- Discharge Planning Updated by [email or web address]: Milli Krueger on 07/03/19 10:[address] [facility] will pick patient up at 12:30 I noticed her temp was 101.1 ax, they reassessed the temp and it was 99.[address] Waters to let him know. new ordered received for ok to dc , obtain urine and give Tylenol. I let Fritz the nurse know what Dr Waters said. I attempted to speak with the patient about discharging today and she said she didn't feel good and her stomach was hurting. Her RR was 28. Fritz was going to call Dr Waters CM will continue to follow and assist as needed DCP- Discharge Planning Updated by [id number]: Milli Krueger on 07/01/19 12:[address] I HAVE ALSO ENTERED NEW OT AND PT ORDERS DCP- Discharge Planning Updated by [email or web address]: Milli Krueger on 07/01/19 11:[address] SPOKE WITH TARA AT [facility], SHE STATED THAT THEY HAVE NOT RECEIVED ANY PAPERWORK FOR THIS REFERRAL. THERE WILL NOT BE ANYONE TO REVIEW IT TILL Wednesday. I WILL START THAT PROCESS DCP- Discharge Planning Updated by [email or web address]: Sil Lopez on 06/29/19 6:[address] De León called CM and stated that patient is wanting to go to [facility] for Rehab and he wants to know if they are requiring Covid testing prior to admitting. CM called and spoke with admissions to find out requirements and they do require CoVid testing prior to admission and it can't be Quick Test. CoVid test ordered for placement purposes. DCPIA - Discharge Planning Initial Assessment Updated by [id number]: Milli Krueger on 07/03/19 2:11 pm * PCP JT * Pharmacy [facility] * Preadmission Environment Home with Family * ADLs Partial Dependent * Partial ADLs (Assistance needed) Ambulation * Equipment Rolling Walker * List name and contact numbers for known caregivers / representatives who currently or will assist patient after discharge: MANOJ (SPOUSE) [phone] * Verbal permission to speak to the caregivers and representatives has been obtained from the patient. N/A * Community resources currently utilized None * Additional services required to return to the preadmission environment? Yes * Can the patient safely return to the preadmission environment? No * Has this patient been hospitalized within the prior 30 days at any hospital? No Coverage Notice Reviewer: [id number] - Sil Lopez Notice Issued Date-Time: 07/04/2019 10:30 Notice Type: IM Discharge Notice Notice Delivered To: Patient Relationship to Patient: Self Helmet Hat Brim Cutter Name: Delivery Method: HAND - Hand Delivered Buffy Days: Prior Verbal Notification: Recipient Understood Notice: Yes Recipient Signature: Yes Med Rec Note Co-signed by Attending: Coverage Notice Comment: Last DP export: 07/03/19 1:22 p Patient Name: NOE ESPINOSA Page 49137 at 2210 All edits/amendments must be made on the electronic document DICTATION DATE: 07/04/192208 TRAFFIC CHIEF: ALFRED 07/04/192208 RPT#: [id number] DC DATE:07/04/19 STATUS: DIS IN [facility] [address] [place] [address] END OF REPORT
--- NOTE | 2019-07-04 22:17 | MORECARE ---
CASE MANAGEMENT DISCHARGE SUMMARY PATIENT: NOE ESPINOSA UNIT: [id number] ADM DATE: 06/28/19 AGE: 84 : 33 SEX: F ROOM/BED: D.2223 AUTHOR: FADY,DOC PHYSICIAN: REFERRING PHYSICIAN: GABBIE WATERS MD DATE OF SERVICE: 07/04/19 Discharge Plan Patient Name: NOE ESPINOSA Facility: [facility]:[place] : 1935 Planned Disposition: Mcfp Facility Anticipated Discharge Date: Discharge Date: 07/04/2019 Expected LOS: Initial Reviewer: [email or web address] Initial Review Date: 06/28/2019 Generated: 07/04/19 11:16 pm Comments DCP- Discharge Planning Updated by [email or web address]: Sil Lopez on 07/04/19 9:[address] CM spoke with Fritz at [facility] and faxed update explained that patient will discharge today. patient will be transferred via ambulance to facility. D/C IMM completed DCP- Discharge Planning Updated by [id number]: Milli Krueger on 07/03/19 1:[address] I spoke with Manoj ( spouse ) to let him know that her discharge was placed on hold because of her fever. He stated that before she was admitted to the hospital she was pretty independent with her care and all she used was a walker and him. I told him that we would let him know when she gets discharged to go to [facility]. CM will continue to follow and assist as needed DCP- Discharge Planning Updated by [id number]: Milli Krueger on 07/03/19 11:[address]PO[address] WATERS, DC PLACED ON HOLD, NEW ORDERS RECEIVED FOR XR AND BLOOD CULTURES. I SPOKE WITH FRITZ ( HER NURSE) ABOUT ABOVE. I CALLED KHUSHI AT [facility] ABOUT DC HOLD. CM TO FOLLOW AND ASSIST NEEDED DCP- Discharge Planning Updated by [id number]: Milli Krueger on 07/03/19 10:[address] [facility] will pick patient up at 12:30 I noticed her temp was 101.1 ax, they reassessed the temp and it was 99.[address] Waters to let him know. new ordered received for ok to dc , obtain urine and give Tylenol. I let Fritz the nurse know what Dr Waters said. I attempted to speak with the patient about discharging today and she said she didn't feel good and her stomach was hurting. Her RR was 28. Fritz was going to call Dr Waters CM will continue to follow and assist as needed DCP- Discharge Planning Updated by [id number]: Milli Krueger on 07/01/19 12:[address] I HAVE ALSO ENTERED NEW OT AND PT ORDERS DCP- Discharge Planning Updated by [email or web address]: Milli Krueger on 07/01/19 11:[address] SPOKE WITH TARA AT [facility], SHE STATED THAT THEY HAVE NOT RECEIVED ANY PAPERWORK FOR THIS REFERRAL. THERE WILL NOT BE ANYONE TO REVIEW IT TILL WEDNESDAY MORNING. I WILL START THAT PROCESS DCP- Discharge Planning Updated by [id number]: Sil Lopez on 06/29/19 6:[address] De León called CM and stated that patient is wanting to go to [facility] for Rehab and he wants to know if they are requiring Covid testing prior to admitting. CM called and spoke with admissions to find out requirements and they do require CoVid testing prior to admission and it can't be Quick Test. CoVid test ordered for placement purposes. DCPIA - Discharge Planning Initial Assessment Updated by [id number]: Milli Krueger on 07/03/19 2:11 pm * PCP JT * Pharmacy [facility] * Preadmission Environment Home with Family * ADLs Partial Dependent * Partial ADLs (Assistance needed) Ambulation * Equipment Rolling Walker * List name and contact numbers for known caregivers / representatives who currently or will assist patient after discharge: MANOJ (SPOUSE) [phone] * Verbal permission to speak to the caregivers and representatives has been obtained from the patient. N/A * Community resources currently utilized None * Additional services required to return to the preadmission environment? Yes * Can the patient safely return to the preadmission environment? No * Has this patient been hospitalized within the prior 30 days at any hospital? No Coverage Notice Reviewer: [id number] - Sil Lopez Notice Issued Date-Time: 07/04/2019 10:30 Notice Type: IM Discharge Notice Notice Delivered To: Patient Relationship to Patient: Self Non Profit Job Titles Name: Delivery Method: HAND - Hand Delivered Buffy Days: Prior Verbal Notification: Recipient Understood Notice: Yes Recipient Signature: Yes Med Rec Note Co-signed by Attending: Coverage Notice Comment: Last DP export: 07/04/19 9:10 p Patient Name: NOE ESPINOSA Page 65921 at 2217 All edits/amendments must be made on the electronic document DICTATION DATE: 07/04/192215 UMBRELLA FRAME MAKER: ALFRED 07/04/192215 RPT#: [id number] DC DATE:07/04/19 STATUS: DIS IN [facility] [address] [place] [address] END OF REPORT
== END 2019-07-04 13:32 | DRG 481 ==
LOC: D.ER 19:03 → D.M2 20:47 → D.MS 20:47 → D.M2 06-29 15:03 → D.MS 07-01 16:22
PROVIDERS: Family Medicine; Orthopaedic Surgery; ADMIT Family Medicine; ATTEND Family Medicine
PROC: 0QHB36Z Insertion of Intramedullary Internal Fixation Device into Right Lower Femur, Percutaneous Approach (ICD-10-PCS; principal; 2019-06-29 09:00)
DX: M97.11XA Periprosthetic fracture around internal prosthetic right knee joint, initial encounter (principal); S72.451A Displaced supracondylar fracture without intracondylar extension of lower end of right femur, initial encounter for closed fracture; D62 Acute posthemorrhagic anemia; J98.11 Atelectasis; W19.XXXA Unspecified fall, initial encounter; I10 Essential (primary) hypertension; I48.91 Unspecified atrial fibrillation